=== PATIENT | male | born 1975 | race American Indian/Alaskan Native ===

== ENCOUNTER 2017-05-31 01:21 | Emergency (ER) | payer SELFPAY ==
[2017-05-31 01:28] VITALS: BMI 21.1
--- NOTE | 2017-05-31 03:11 | ED PDOC ---
Arrival/HPI - General Chief Complaint: Alcohol Ingestion Time Seen by Provider: 05/31/17 02:01 Historian: Patient, EMS EM Caveat: Intoxicated - History of Present Illness Narrative History of Present Illness (Text): 05/31/17 02:11 41 year old male presents to the emergency department by EMS for alcohol intoxication. Questionable fall and mildly unsteady on feet. Patient was uncooperative and shows no other signs of trauma. HPI and ROS limited due to patient's state of Alcohol intoxication. Past Medical History - Provider Review Nursing Documentation Reviewed: Yes - Cardiac Hx Cardiac Disorders: No - Pulmonary Hx Respiratory Disorders: Yes Hx Asthma: Yes - Neurological Hx Neurological Disorder: No - HEENT Hx HEENT Disorder: No - Renal Hx Renal Disorder: No - Endocrine/Metabolic Hx Endocrine Disorders: No - Hematological/Oncological Hx Blood Disorders: No - Integumentary Hx Dermatological Disorder: No - Musculoskeletal/Rheumatological Hx Musculoskeletal Disorders: No - Gastrointestinal Hx Gastrointestinal Disorders: No - Genitourinary/Gynecological Hx Genitourinary Disorders: No - Psychiatric Hx Psychophysiologic Disorder: No Hx Substance Use: No Family/Social History - Physician Review Nursing Documentation Reviewed: Yes Family/Social History: No Known Family HX Smoking Status: Heavy Smoker > 10 Cigarettes Daily Hx Alcohol Use: Yes Hx Substance Use: No Allergies/Home Meds Allergies/Adverse Reactions: Allergies No Known Allergies Allergy (Verified 05/31/17 01:36) Home Medications: Home Meds Medication Instructions Recorded Confirmed No Known Home Med 05/31/17 05/31/17 Review of Systems - Physician Review All systems were reviewed & negative as marked: Yes - Review of Systems Systems not reviewed;Unavailable: Intoxicated Physical Exam - Physical Exam Physical Exam Limitations: Intoxication Vital Signs Reviewed: Yes Vital Signs Temp Pulse Resp BP Pulse Ox 05/31/17 03:21 98.1 F 05/31/17 01:27 87 19 143/87 100 Temperature: Afebrile Blood Pressure: Normal Pulse: Regular Respiratory Rate: Normal Appearance: Positive for: Well-Appearing, Non-Toxic, Comfortable Pain Distress: None - Systems Exam Head: Present: Atraumatic, Normocephalic Pupils: Present: PERRL Extroacular Muscles: Present: EOMI Conjunctiva: Present: Normal Mouth: Present: Moist Mucous Membranes Neck: Present: Normal Range of Motion Respiratory/Chest: Present: Clear to Auscultation, Good Air Exchange. No: Respiratory Distress, Accessory Muscle Use Cardiovascular: Present: Regular Rate and Rhythm, Normal S1, S2. No: Murmurs Back: Present: Normal Inspection Upper Extremity: Present: Normal Inspection. No: Cyanosis, Edema Lower Extremity: Present: Normal Inspection. No: Edema Neurological: Present: GCS=15, Motor Func Grossly Intact Skin: Present: Warm, Dry, Normal Color. No: Rashes Psychiatric: Present: Alert, Normal Insight, Normal Concentration Medical Decision Making ED Course and Treatment: 05/31/17 02:11 Impression: 41 year old male presents for EtOH intoxication. Plan: -- CT Head W/O contrast -- Ativan -- Reassess and disposition Progress Notes: EXAM: CT Head Without Intravenous Contrast Dictated and Authenticated by: Laquita Benoit MD 05/31/2017 3:14 AM IMPRESSION: - No acute findings seen within the brain. - See above for remaining findings. - RAD Interpretation Radiology Orders: 05/31/17 02:25 HEAD W/O CONTRAST [CT] Stat - Medication Orders Current Medication Orders: Discontinued Medications Lorazepam (Ativan) 2 mg PO ONCE ONE PRN Reason: Protocol Stop: 05/31/17 02:58 Last Admin: 05/31/17 03:23 Dose: - Scribe Statement The provider has reviewed the documentation as recorded by the Artie Day Provider Scribe Attestation: All medical record entries made by the Scribe were at my direction and personally dictated by me. I have reviewed the chart and agree that the record accurately reflects my personal performance of the history, physical exam, medical decision making, and the department course for this patient. I have also personally directed, reviewed, and agree with the discharge instructions and disposition. Disposition/Present on Arrival - Present on Arrival Any Indicators Present on Arrival: No History of DVT/PE: No History of Uncontrolled Diabetes: No Urinary Catheter: No History of Decub. Ulcer: No History Surgical Site Infection Following: None - Disposition Have Diagnosis and Disposition been Completed?: Yes Diagnosis: Intoxication Disposition: HOME/ ROUTINE Disposition Time: 03:12 Patient Plan: Discharge Patient Problems: Current Active Problems Problem Status Onset Intoxication Acute Condition: IMPROVED Discharge Instructions (ExitCare): Abuse of Alcohol (ED) Forms: [employer] (Bur[place]ian)
--- NOTE | 2017-05-31 03:14 | CT ---
EXAM: CT Head Without Intravenous Contrast EXAM DATE/TIME: 05/31/2017 2:25 AM CLINICAL HISTORY: 41 years old, male; Signs and symptoms; Altered mental status/memory loss; Confusion or disorientation; Additional info: Fall TECHNIQUE: Axial computed tomography images of the head/brain without intravenous contrast. All CT scans at this facility use one or more dose reduction techniques, viz.: automated exposure control; ma/kV adjustment per patient size (including targeted exams where dose is matched to indication; i.e. head); or iterative reconstruction technique. COMPARISON: No relevant prior studies available. FINDINGS: BRAIN: No acute abnormality identified. No acute hemorrhage seen within the brain. No acute extra-axial fluid collections visualized. No evidence of significant mass effect within the brain.Normal boucher-white matter differentiation. VENTRICLES: No evidence of significant hydrocephalus. BONES/JOINTS: Left nasal bone fracture, which appears chronic. Recommend clinical correlation. No additional fractures seen. SOFT TISSUES: No acute abnormality of the visualized soft tissues is seen. SINUSES: Visualized paranasal sinuses appear clear. MASTOID AIR CELLS: Mastoid air cells appear clear. IMPRESSION: - No acute findings seen within the brain. - See above for remaining findings.
[2017-05-31 03:29] VITALS: TEMP 98.1
[2017-05-31 04:50] VITALS: BP 139/82; PULSE 79; RESP 18; O2SAT 96
== END 2017-05-31 03:30 | disposition home or self-care (01) ==
LOC: ED 01:21 → MERGE 01:21 → ED 03:30
DX: F10.129 Alcohol abuse with intoxication, unspecified (principal); Y90.9 Presence of alcohol in blood, level not specified

== ENCOUNTER 2017-06-27 21:54 | Emergency (ER) | payer SELFPAY ==
[2017-06-27 21:54] VITALS: BMI 21.1
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
[2017-06-28 05:10] VITALS: RESP 16; O2SAT 97
[2017-06-28 05:12] VITALS: BP 142/70; PULSE 78
== END 2017-06-28 06:36 | disposition home or self-care (01) ==
LOC: ED 21:54
DX: F10.129 Alcohol abuse with intoxication, unspecified (principal)

== ENCOUNTER 2017-11-18 22:08 | Inpatient (IN) | payer MEDICAID ==
[2017-11-18 23:00] VITALS: BMI 23.7
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
[2017-11-19 00:18] LABS: BASO # 0.08 K/mm3 (0.0-2.0); BASO % 0.8 % (0.0-3.0); EOS # 0.1 (0.0-0.7); EOS % 1.4 % (1.5-5.0); GRAN # 5.76 (1.4-6.5); GRAN % 57.8 % (50.0-68.0); HEMOGLOBIN 13.7 g/dL (14.0-18.0); LYMPH # 3.1 (1.2-3.4); LYMPH % 31.2 % (22.0-35.0); MEAN CELL VOLUME 91.8 fl (80.0-105.0); MEAN CORPUSCULAR HEMOGLOBIN 30.4 pg (25.0-35.0); MEAN CORPUSCULAR HGB CONC 33.2 g/dl (31.0-37.0); MEAN PLATELET VOLUME 9.9 fl (7.0-11.0); MONO # 0.9 (0.1-0.6); MONO % 8.8 % (1.0-6.0); RBC 4.5 10^6/uL (3.5-6.1); RED CELL DISTRIBUTION WIDTH 13.4 % (11.5-14.5)
[2017-11-19 00:18] LABS: URINE BILIRUBIN NEGATIVE (NEGATIVE); URINE BLOOD NEGATIVE (NEGATIVE); URINE GLUCOSE (UA) NEGATIVE (NEGATIVE); URINE LEUKOCYTE ESTERASE NEGATIVE Leu/uL (NEGATIVE); URINE PROTEIN TRACE mg/dL (<30 mg/dL)
[2017-11-19 00:19] LABS: URINE APPEARANCE CLEAR (CLEAR); URINE COLOR YELLOW (YELLOW)
[2017-11-19 00:29] LABS: URINE EPITHELIAL CELLS 0 - 2 /hpf (0-5); URINE RBC 0 - 2 /hpf (0-2); URINE WBC 0 - 2 /hpf (0-6)
[2017-11-19 00:30] LABS: ACETAMINOPHEN < 10.0 ug/ml (10.0-20.0); SALICYLATE < 1 mg/dL (2.0-20.0)
[2017-11-19 00:40] LABS: ALB/GLOB RATIO 1.4 (1.1-1.8); ALBUMIN 4.4 g/dL (3.0-4.8); ALT/SGPT 20 U/L (7-56); AST/SGOT 64 U/L (17-59); BLOOD UREA NITROGEN 16 mg/dL (7-21); CALCIUM 9.3 mg/dL (8.4-10.5); GFR AFRICAN-AMERICAN > 60; GFR NON-AFRICAN AMERICAN > 60
[2017-11-19 00:44] LABS: BARBITURATES, UR NEGATIVE (NEGATIVE); BENZODIAZEPINES, UR NEGATIVE (NEGATIVE); OPIATES, UR NEGATIVE (NEGATIVE); PHENCYCLIDINE, UR POSITIVE (NEGATIVE)
[2017-11-19 05:58] VITALS: O2SAT 100
[2017-11-19] MEDS ORDERED: Alum-Mag Hydrox-Simethicone Susp (30 mL) PO PRN (06:29)
[2017-11-19] MEDS ORDERED: Magnesium Hydroxide Susp 30 ml UD PO PRN (06:29)
[2017-11-19 08:07] LABS: GLUCOSE,FASTING 88 mg/dL (65-110); HDL CHOLESTEROL 76 mg/dL (29-60)
--- NOTE | 2017-11-19 08:17 | RAD ---
HISTORY: PES eval COMPARISON: No prior. FINDINGS: LUNGS: No active pulmonary disease. PLEURA: No significant pleural effusion identified, no pneumothorax apparent. CARDIOVASCULAR: Normal. OSSEOUS STRUCTURES: No significant abnormalities. VISUALIZED UPPER ABDOMEN: Normal. OTHER FINDINGS: None. IMPRESSION: No active disease.
[2017-11-19 08:18] LABS: LDL CHOLESTEROL 54 mg/dL (0-129)
--- NOTE | 2017-11-19 09:34 | PCM.BM ---
<Kaz Ardon - Last Filed: 11/19/17 09:30> Treatment Plan Problems - Problems identified on initial assessmt depressive symptoms Date Initiated: 11/19/17 Time Initiated: 09:31 Assessment reference: HP, NA Status: Active medication nonadherence Date Initiated: 11/19/17 Time Initiated: 09:32 Assessment reference: HP, NA Status: Active hoplessness/helplessness Date Initiated: 11/19/17 Time Initiated: 09:33 Assessment reference: HP, NA Status: Active Treatment assets and liabiliti Patient Assests: adapts well, cooperative, self-reliant, ADL independent, physically healthy, negotiates basic needs, cognitively intact Patient Liabilities: poor support system, relationship conflicts, substance abuse - Milieu Protocol Maintain good personal hygiene: daily Encourage regular showers, daily Remind patient to perform daily oral care, daily Assist patient to perform ADL's Maintain personal safety: daily Educate patient to report safety concerns to staff, daily Monitor environment for contraband/sharps Medication safety: Monitor for expected outcome, potential side effects: daily, Assess barriers to learning: daily, Assess readiness for medication education: daily Discharge/Continuing Care - Education Needs Education Needs: Patient Medication, Patient Diagnosis/Disease Process, Patient Coping Skills, Patient Anger Management skills, Patient Community resources, Patient Activities of Daily Living, Patient Health Practices/Safety, Patient Personal Hygiene/Grooming, Patient Aftercare Safety Plan - Discharge Discharge Criteria: Free of Suicidal thoughts, Free of Homicidal thoughts, Free of paranoid thoughts, Free of agitation, Normal sleep pattern, No longer exhibiting s/s of withdrawal Discharge to:: Home <Aminah Joseph - Last Filed: 11/19/17 13:48> - Diagnosis (1) Alcohol use disorder, severe, dependence Status: Acute Interventions: 11/19/17 13:48 Monitoring withdrawal symptoms Medical detoxification Pharmacotherapy for alcohol/benzos/opioid dependence Maintaining sobriety Relapse prevention Possible rehabilitation Motivational interviewing 12-step programs: AA meetings (2) PCP (phencyclidine) abuse Status: Acute Interventions: 11/19/17 13:48 Maintaining sobriety Relapse prevention Possible rehabilitation Motivational interviewing 12-step programs: AA meetings (3) Schizoaffective disorder Status: Acute Interventions: 11/19/17 13:49 Psychoeducation/psychotherapy Psychopharmacology/adjustment of medications as needed/ monitoring possible side effects Evaluate pt on daily basis Compliance with medications and follow up appointments Long acting medication if pt is noncompliant with pill form Suicide and homicide risk assessment and prevention, coping strategies, safety plan Relapse prevention Reduction of symptoms Improve functional status Possible assertive community treatment Cognitive behavioral therapy Family involvement Possible social skill training as outpatient <Savannah Meyer - Last Filed: 11/19/17 14:58> Family Contact Family involvement: Famliy/SO not involved
--- NOTE | 2017-11-19 13:47 | PCM.PSYCH ---
Initial Psychiatric Evaluation - Initial Psychiatric Evaluation Type of Admission: Voluntary Legal Status: Capacity (pt has capacity to sign consent for treatment) Chief Complaint (in patient's own words): "I just wanted the voices to stop..." Patient's Reaction to Hospitalization: pt was admitted for evaluation of possible suicidal ideation, command type hallucinations, which could be related to PCP he used History of Present Illness and Precipitating Events: shortly pt is a 41 y/o Male with reported history of bipolar disorder and psychosis vs schizoaffective disorder, alcohol use disorder and PCP use disorder, multiple psychiatric admissions, most recent was two days ago , pt was d/c AMA from , pt has at least 4suicidal attempts, most recent was about a week ago, pt tried to kill himself by banging his head against cabinet, pt also has h/o trying to hang self, slashed wrists, pt also has h/o incarceration for seven years because weapon possession. pt as admitted to the psychiatric inpatient unit for evaluation and stabilization of command type hallucinations, telling him to kill himself, worsening of depression, suicidal plan no intent, pt required further evaluation and stabilization and medication adjustment because pt was not able to contract for safety. pt was seen and examined at the treatment team meeting, presented with some psychomotor retardation, flat affect, concrete thought process, acceptable personal hygiene, good ADLs. pt said he wanted to be discharged from the because "I was feeling very depressed and I was hearing voices, but still they were giving me the same medications..." pt reported [facility] did not accept him (it was recommendation), pt reported not taking his medications and as a result pt relapsed on PCP "20$ worth daily". pt also reported that he was drinking alcohol "every other day", pt reported no other drug use, pt smokes about 4- 5cigarettes a day, counseling provided, nicotine patch offered, pt refused. pt said after he left the [facility] he was feeling more depressed and hopeless, pt reported for the past two days he was thinking either to overdose on drugs, or cut himself. pt said that he did not tried to kill himself. pt said that the last suicidal attempt was "seven days ago I banged my head against cabinet", pt has some scar on the forehead, does not look fresh. pt said he was diagnosed with bipolar disorder, pt reported h/o irritability, agitation, mind racing. pt presented to be disorganized and internally preoccupied. He reports auditory hallucinations telling him to kill himself. He also reports visual hallucinations, shadows, demons and devils. He also reports persecutory delusions that someone is following him. poor appetite and sleep. Past psychiatric h/o: patient has history of multiple inpatient psychiatric hospitalizations. He has been admitted at the [facility]. He was incarcerated when he tried to hang himself. He also slashed his wrist. He was incarcerated for 7 years because of a charge of weapons possession. PMH h/o fractured hand (because he punched a wall) Family hx unknown Meds from the previous admission: ARIPiprazole [Abilify] 10 mg PO DAILY #30 tab 09/28/17 buPROPion XL [Wellbutrin XL] 150 mg PO DAILY #30 t24 09/28/17 traZODone [Desyrel] 50 mg PO HS #30 tab 09/28/17 Benztropine [Cogentin] 1 mg PO BID #60 tab 10/25/17 Divalproex [Depakote DR] 500 mg PO HS #30 tcp 10/25/17 Haloperidol [Haldol] 5 mg PO BID #60 tab 10/25/17 traZODone [Desyrel] 50 mg PO HS PRN #30 tab 10/25/17 pt reported that he did not like abilify/depakote/haldol/trazodone pt said risperdal was helping him in the past and he requested to be on it. pt willing to try remeron for insomnia pt reports to live with the friend pt reports that he had some job and he is planning to go back 11/19/17 00:02 11/19/17 00:02 Lab Results 11/19/17 07:30: TSH 3rd Generation 2.78 11/19/17 07:30: Fasting Glucose 88, Triglycerides 48, Cholesterol 147, LDL Cholesterol Direct 54, HDL Cholesterol 76 H 11/19/17 00:02: Alcohol, Quantitative < 10 11/19/17 00:02: Salicylates < 1 L, Acetaminophen < 10.0 L 11/19/17 00:02: Sodium 144, Potassium 3.9, Chloride 104, Carbon Dioxide 28, Anion Gap 16, BUN 16, Creatinine 1.3, Est GFR ( Amer) > 60, Est GFR (Non- Af Amer) > 60, Random Glucose 85, Calcium 9.3, Magnesium 1.8, Total Bilirubin 0.2, AST 64 H, ALT 20, Alkaline Phosphatase 65, Total Protein 7.5, Albumin 4.4, Globulin 3.1, Albumin/Globulin Ratio 1.4 11/19/17 00:02: WBC 10.0, RBC 4.50, Hgb 13.7 L, Hct 41.3 L, MCV 91.8, MCH 30.4, MCHC 33.2, RDW 13.4, Plt Count 246, MPV 9.9, Gran % 57.8, Lymph % (Auto) 31.2, [place] % (Auto) 8.8 H, Eos % (Auto) 1.4 L, Baso % (Auto) 0.8, Gran # 5.76, Lymph # (Auto) 3.1, [place] # (Auto) 0.9 H, Eos # (Auto) 0.1, Baso # (Auto) 0.08 11/18/17 23:40: Urine Opiates Screen Negative, Urine Methadone Screen Negative, Ur Barbiturates Screen Negative, Ur Phencyclidine Scrn Positive H, Ur Amphetamines Screen Negative, U Benzodiazepines Scrn Negative, U Oth Cocaine Metabols Negative, U Cannabinoids Screen Negative 11/18/17 23:40: Urine Color Yellow, Urine Appearance Clear, Urine pH 7.0, Ur Specific [place] 1.015, Urine Protein Trace H, Urine Glucose (UA) Negative, Urine Ketones Negative, Urine Blood Negative, Urine Nitrate Negative, Urine Bilirubin Negative, Urine Urobilinogen 1.0 H, Ur Leukocyte Esterase Negative, Urine RBC 0 - 2, Urine WBC 0 - 2, Ur Epithelial Cells 0 - 2 Vital Signs Temp Pulse Resp BP Pulse Ox 11/19/17 09:45 97.7 F 63 16 109/59 L 11/19/17 05:59 97.6 F 60 16 105/66 100 11/19/17 05:58 97.6 F 60 16 105/66 100 11/19/17 05:07 61 16 105/53 L 98 11/19/17 03:46 65 18 104/36 L 98 11/19/17 02:13 80 16 109/60 98 11/18/17 22:59 98.5 F 72 19 129/74 99 pt denied being abuse Current Medications: Active Medications Generic Name Dose Route Start Last Admin Trade Name Freq PRN Reason Stop Dose Admin Acetaminophen 650 mg 11/19/17 06:29 Tylenol 325mg Tab PO Q4 PRN Pain, moderate (4-7) Al Hydrox/Mg Hydrox/Simethicone 30 ml 11/19/17 06:29 Maalox Plus 30 Ml PO DAILY PRN Upset Stomach Folic Acid 1 mg 11/20/17 08:00 Folic Acid PO DAILY IVETTE Magnesium Hydroxide 30 ml 11/19/17 06:29 Milk Of Magnesia PO DAILY PRN Constipation Mirtazapine 15 mg 11/19/17 22:00 Remeron PO HS [facility] Multivitamins/Minerals 1 tab 11/20/17 08:00 Therapeutic-M Tab PO 0800 IVETTE Risperidone 1 mg 11/19/17 07:00 11/19/17 10:29 Risperdal Tab PO 1 mg [facility] IVETTE Administration Protocol Thiamine HCl 100 mg 11/20/17 08:00 Vitamin B1 Tab PO DAILY IVETTE Ziprasidone 20 mg 11/19/17 12:54 Geodon Inj IM Q6H PRN agitation/psychosis Protocol Ziprasidone 20 mg 11/19/17 12:54 Geodon Cap PO Q6H PRN agitation/psychosis Protocol Zolpidem Tartrate 5 mg 11/19/17 12:57 Ambien PO HS PRN Insomnia Protocol Past Psychiatric History - Past Psychiatric History Previous Treatment History: Inpatient Prior Professional Help: see hPI Prior Psychiatric Treatment: see HPI At what hospital: see HPI Duration: see HPI Nature of Treatment: see HPI Explanation of prior treatment: see HPI History of Abuse: see HPI History of ETOH/Drug Use: see HPI History of Family Illness: see HPI Pertinent Medical Hx (Current Medical&Sleep Prob, Allergies): Allergies Allergy/AdvReac Type Severity Reaction Status Date / Time No Known Allergies Allergy Verified 11/18/17 23:03 buPROPion XL [Wellbutrin XL] 150 mg PO DAILY #30 t24 09/28/17 Benztropine [Cogentin] 1 mg PO BID #60 tab 10/25/17 Divalproex [Depakote DR] 500 mg PO HS #30 tcp 10/25/17 ARIPiprazole [Abilify] 15 mg PO QPM #30 tab 11/17/17 Sertraline [Zoloft] 100 mg PO DAILY #30 tab 11/17/17 traZODone [Desyrel] 100 mg PO HS #30 tab 11/17/17 Review of Systems - Review of Systems Systems not reviewed;Unavailable: Acuity of Condition - EENT Eyes: As Per HPI Ears: As Per HPI Nose/Mouth/Throat: As Per HPI - Cardiovascular Cardiovascular: As Per HPI - Respiratory Respiratory: As Per HPI - Gastrointestinal Gastrointestinal: As Per HPI - Genitourinary Genitourinary: As Per HPI - Reproductive: Male Reproductive:Male: As Per HPI - Musculoskeletal Musculoskeletal: As Par HPI - Integumentary Integumentary: As Per HPI - Neurological Neurological: As Per HPI - Psychiatric Psychiatric: As Per HPI - Endocrine Endocrine: As Per HPI - Hematologic/Lymphatic Hematologic: As Per HPI Mental Status Examination - Personal Presentation Personal Presentation: Looks stated age - Affect Affect: Flat - Motor Activity Motor Activity: Psychomotor Retardation - Reliability in Providing Information Reliability in Providing Information: Fair - Speech Speech: Organized, Other (poverty of speech) - Mood Mood: Depressed - Formal Thought Process Formal Thought Process: Hallucinations, Delusions, Paranoia, Loosening of associations, Circumstantial - Hallucinations/Delusions Hallucinations: Auditory Delusions: Persecution - Obsessions/Compulsions Obsessions: None Compulsions: None - Cognitive Functions Orientation: Person, Place, Situation Sensorium: Alert Attention/Concentration: Easily distracted Abstract Thinking: [place] Estimate of Intelligence: Below average Judgement: Intact, as evidence by: Insight regarding need for hospitalization - Risk Risk: Suicidal, Diminished functioning - Strength & Assets Inventory Strength & Assets Inventory: Cooperative (relatively good physical health) - Limitations Limitations: Other (substance abuse) DSM 5 DX - DSM 5 DSM 5 Diagnosis: as per h/o bipolar with psychosis vs schizoaffective bipolar type r/o substance induced psychosis PCP and alcohol use disorder - Recommended/Plan of Treatment Treatment Recommendations and Plan of Treatment: Milieu/structure/supportive therapy Medical consult will be considered SW consultation for discharge plan and social issues Med management pt reported that he did not like abilify/depakote/haldol/trazodone pt said risperdal was helping him in the past and he requested to be on it. 1mg po bid cogentin 0.5mg po bid for EPS pt willing to try remeron for insomnia 15mg po hs for depression and insomnia Family involvement Follow up on labs Will monitor closely Pt was educated about risk/benefits and alternatives of medications, coping strategies (safety plan, suicide prevention), relapse prevention, importance of follow up with psychiatrist and therapist, stay away from drugs/alcohol/smoking Projected ELOS: 7days Prognosis: fair Discharge Plan and Discharge Criteria: Pt will be not depressed or manic, will be more hopeful, will be not psychotic or anxious, will be not having thoughts of harming self or others, will be tolerating medications well, will not have major side effects, will be able to function, will not pose threat to self or others. - Smoking Cessation Smoking Cessation Initiated: No Reason for not providing: pt does not want to be on inicotine patch
--- NOTE | 2017-11-19 14:08 | CARD ---
APPROVED REPORT EKG Measurement Heart [id number] <Conclusion> Normal sinus rhythm Normal ECG
[2017-11-20] MEDS: Multivitamin With Minerals Tab PO SCH (09:32)
--- NOTE | 2017-11-20 12:45 | PCM.PYCHPN ---
Psychiatric Progress Note - Psychiatric Progress Note Patient seen today, length of contact: 30 minutes Patient Chief Complaint: "I feel little better" Problems Identified/Issues Discussed: Suicide/ homicide prevention, past psychiatric h/o, current psychiatric symptoms , medical problems, risk/benefits and alternatives of medications, medications compliance, coping strategies, substance abuse h/o, relapse prevention, importance of follow up with psychiatrist and therapist, discharge plan. Medical Problems: patient relatively healthy Diagnostic Results: 11/19/17 00:02 11/19/17 00:02 Lab Results 11/19/17 07:30: RPR Nonreactive 11/19/17 07:30: TSH 3rd Generation 2.78 11/19/17 07:30: Fasting Glucose 88, Triglycerides 48, Cholesterol 147, LDL Cholesterol Direct 54, HDL Cholesterol 76 H 11/19/17 00:02: Alcohol, Quantitative < 10 11/19/17 00:02: Salicylates < 1 L, Acetaminophen < 10.0 L 11/19/17 00:02: Sodium 144, Potassium 3.9, Chloride 104, Carbon Dioxide 28, Anion Gap 16, BUN 16, Creatinine 1.3, Est GFR ( Amer) > 60, Est GFR (Non- Af Amer) > 60, Random Glucose 85, Calcium 9.3, Magnesium 1.8, Total Bilirubin 0.2, AST 64 H, ALT 20, Alkaline Phosphatase 65, Total Protein 7.5, Albumin 4.4, Globulin 3.1, Albumin/Globulin Ratio 1.4 11/19/17 00:02: WBC 10.0, RBC 4.50, Hgb 13.7 L, Hct 41.3 L, MCV 91.8, MCH 30.4, MCHC 33.2, RDW 13.4, Plt Count 246, MPV 9.9, Gran % 57.8, Lymph % (Auto) 31.2, [place] % (Auto) 8.8 H, Eos % (Auto) 1.4 L, Baso % (Auto) 0.8, Gran # 5.76, Lymph # (Auto) 3.1, [place] # (Auto) 0.9 H, Eos # (Auto) 0.1, Baso # (Auto) 0.08 11/18/17 23:40: Urine Opiates Screen Negative, Urine Methadone Screen Negative, Ur Barbiturates Screen Negative, Ur Phencyclidine Scrn Positive H, Ur Amphetamines Screen Negative, U Benzodiazepines Scrn Negative, U Oth Cocaine Metabols Negative, U Cannabinoids Screen Negative 11/18/17 23:40: Urine Color Yellow, Urine Appearance Clear, Urine pH 7.0, Ur Specific [place] 1.015, Urine Protein Trace H, Urine Glucose (UA) Negative, Urine Ketones Negative, Urine Blood Negative, Urine Nitrate Negative, Urine Bilirubin Negative, Urine Urobilinogen 1.0 H, Ur Leukocyte Esterase Negative, Urine RBC 0 - 2, Urine WBC 0 - 2, Ur Epithelial Cells 0 - 2 Temp Pulse Resp BP Pulse Ox 97.7 F 55 L 18 87/47 L 100 11/20/17 07:34 11/20/17 07:34 11/20/17 07:34 11/20/17 07:34 11/19/17 05:59 DSM 5 Symptoms Update: shortly pt is a 41 y/o Male with reported history of bipolar disorder and psychosis vs schizoaffective disorder, alcohol use disorder and PCP use disorder, multiple psychiatric admissions, most recent was two days ago , pt was d/c AMA from [facility], pt has at least 4suicidal attempts, most recent was about a week ago, pt tried to kill himself by banging his head against cabinet, pt also has h/o trying to hang self, slashed wrists, pt also has h/o incarceration for seven years because weapon possession. pt as admitted to the psychiatric inpatient unit for evaluation and stabilization of command type hallucinations, telling him to kill himself, worsening of depression, suicidal plan no intent, pt required further evaluation and stabilization and medication adjustment because pt was not able to contract for safety. pt was seen and examined next to the nursing station, pt presented with some psychomotor retardation, flat affect, concrete thought process, acceptable personal hygiene, good ADLs. patient reported that he feels little bit better, reported that he still feels depressed and hopeless, reported voices are " little better", patient reported that he slept well, anxiety is "better controlled". As per nursing staff reported patient "be irritable, but no agitation, no aggression, at the same time patient preferred to be by himself, self isolating in his room. so far patient tolerates medications well, no side effects observed or reported , aims 0, no EPS. DSM 5 Diagnosis: as per h/o bipolar with psychosis vs schizoaffective bipolar type r/o substance induced psychosis PCP and alcohol use disorder Medication Change: Yes (risperdal was resumed, Remeron started) Medical Record Reviewed: Yes Consults ordered or reviewed: patient does not have any medical issues at present moment, we'll call medical team as needed. Mental Status Examination - Cognitive Function Orientation: Person, Place, Situation Memory: Impaired Attention: Poor Concentration: Poor Association: Loose Fund of Knowledge: Poor - Mood Mood: Depressed, Anxious - Affect Affect: Constricted, Flat - Formal Thought Process Formal Thought Process: Hallucinations, Delusions, Paranoia, Loosening of associations, Circumstantial - Suicidal Ideation Suicidal Ideation: No - Homicidal Ideation Homicidal Ideation: No Goal/Treatment Plan - Goal/Treatment Plan Need for Continued Stay: Remain at risks for inpatient hospitalization, Severe depression anxiety, Discharge may exacerbated symptoms, Failed transitioning, Severe functional impairment Progress Toward Problem(s) and Goals/Treatment Plan: Milieu/structure/supportive therapy Medical consult will be considered SW consultation for discharge plan and social issues Med management pt reported that he did not like abilify/depakote/haldol/trazodone pt said risperdal was helping him in the past and he requested to be on it. 1mg po bid cogentin 0.5mg po bid for EPS pt willing to try remeron for insomnia 15mg po hs for depression and insomnia Ambien as needed for insomnia Family involvement Follow up on labs Will monitor closely Pt was educated about risk/benefits and alternatives of medications, coping strategies (safety plan, suicide prevention), relapse prevention, importance of follow up with psychiatrist and therapist, stay away from drugs/alcohol/smoking Estimated Date of D/C: 11/26/17 (We'll monitor closely)
[2017-11-21 06:50] VITALS: RESP 20
[2017-11-21] MEDS: Multivitamin With Minerals Tab PO SCH (09:10)
--- NOTE | 2017-11-21 12:34 | PCM.PYCHPN ---
Psychiatric Progress Note - Psychiatric Progress Note Patient seen today, length of contact: 25 minutes Patient Chief Complaint: "irritable, I didn't sleep all night!" Problems Identified/Issues Discussed: Patient is a 41 y/o Male with reported history of bipolar disorder and psychosis vs schizoaffective disorder, alcohol use disorder and PCP use disorder, multiple psychiatric admissions, most recent was two days prior to this admission--pt was d/c AMA from [facility], at least 4 suicidal attempts--most recent was about a week ago, pt tried to kill himself by banging his head against cabinet (pt also has h/o trying to hang self, slashed wrists), +h/o incarceration for seven years because of weapon possession who was admitted to the psychiatric inpatient unit for evaluation and stabilization of command type hallucinations, telling him to kill himself as well as worsening of depression. I reviewed recent notes. Patient has been in fair control, he can be a little irritable but doesnt demonstrate any aggression or threatening behavior. He has attended group and socialized with certain peers though generally keeps to himself and stays in his room. Overnight patient was unhappy and irritable due to a new roommate talking to himself and pacing. Patient reports that his new roommate freaks me out and patient wasnt able to sleep last night. He denies thoughts to harm this roommate and commits to alerting staff members if roommate is disturbing him. Patient reported to Dr. Joseph yesterday that he still feels depressed and hopeless but has been getting better. Except for the issue with his roommate, patient reports the same general status to me today. He is feeling better and hallucinations are improving. He denies any SI. His thought process is coherent and affect is constricted and preoccupied. Patient doesn't appear to be responding to internal stimuli. He is more visible on the unit today thus far and has been in good control. Alerts staff members appropriately when there are issues and can communicate needs well. Insight, judgement and impulse control are improving. Diagnostic Results: as per h/o bipolar with psychosis vs schizoaffective bipolar type r/o substance induced psychosis PCP and alcohol use disorder Medication Change: Yes (risperdal was resumed, Remeron started) Medical Record Reviewed: Yes Mental Status Examination - Cognitive Function Orientation: Person, Place, Situation Memory: Impaired Attention: WNL Concentration: Poor Association: Loose Fund of Knowledge: Poor - Mood Mood: Depressed, Anxious - Affect Affect: Constricted, Flat, Other (mildly irritable regarding his roommate, he can be calmed down and reassured) - Formal Thought Process Formal Thought Process: Hallucinations (CAH are improving), Delusions, Paranoia , Loosening of associations, Circumstantial - Suicidal Ideation Suicidal Ideation: No - Homicidal Ideation Homicidal Ideation: No Goal/Treatment Plan - Goal/Treatment Plan Need for Continued Stay: Remain at risks for inpatient hospitalization, Severe depression anxiety, Discharge may exacerbated symptoms, Failed transitioning, Severe functional impairment Progress Toward Problem(s) and Goals/Treatment Plan: * c/w current tx and plan * No new labs today thus far * Vitals reviewed and noted below: Selected Entries 11/21/17 06:50 Temperature 98.0 F Pulse Rate 57 L Respiratory 20 Rate Blood Pressure 95/54 L Estimated Date of D/C: 11/26/17 (We'll monitor closely)
[2017-11-22] MEDS: Multivitamin With Minerals Tab PO SCH (08:20)
--- NOTE | 2017-11-22 10:11 | PCM.PYCHPN ---
Psychiatric Progress Note - Psychiatric Progress Note Patient seen today, length of contact: 25 minutes Patient Chief Complaint: "irritable, I didn't sleep all night!" Problems Identified/Issues Discussed: Patient is a 41 y/o Male with reported history of bipolar disorder and psychosis vs schizoaffective disorder, alcohol use disorder and PCP use disorder, multiple psychiatric admissions, most recent was two days prior to this admission--pt was d/c AMA from [facility], at least 4 suicidal attempts--most recent was about a week ago, pt tried to kill himself by banging his head against cabinet (pt also has h/o trying to hang self, slashed wrists), +h/o incarceration for seven years because of weapon possession who was admitted to the psychiatric inpatient unit for evaluation and stabilization of command type hallucinations, telling him to kill himself as well as worsening of depression. Patient is a 41 y/o Male with reported history of bipolar disorder and psychosis vs schizoaffective disorder, alcohol use disorder and PCP use disorder, multiple psychiatric admissions, most recent was two days prior to this admission--pt was d/c AMA from [facility], at least 4 suicidal attempts--most recent was about a week ago, pt tried to kill himself by banging his head against cabinet (pt also has h/o trying to hang self, slashed wrists), +h/o incarceration for seven years because of weapon possession who was admitted to the psychiatric inpatient unit for evaluation and stabilization of command type hallucinations, telling him to kill himself as well as worsening of depression. I reviewed recent notes. Patient has been in better emotional control, less labile and less irritable. He is more visible and seen socializing and smiling at times. He can tolerate group settings. Subjectively he reports that he is feeling better. Auditory hallucinations of "voices and chatter" persist but are much less pervasive than before. He can ignore them more readily. Denies CAH, denies SI or PI. He looks less guarded and less paranoid. Wasn't observed to be responding to internal stimuli. Continues to deny any new discomfort or pain. Insight, judgement and impulse control continue to improve. Diagnostic Results: as per h/o bipolar with psychosis vs schizoaffective bipolar type r/o substance induced psychosis PCP and alcohol use disorder Medication Change: Yes (risperdal was resumed, Remeron started) Medical Record Reviewed: Yes Mental Status Examination - Cognitive Function Orientation: Person, Place, Situation Memory: Impaired Attention: WNL Concentration: Poor Association: Loose Fund of Knowledge: Poor - Mood Mood: Depressed, Anxious - Affect Affect: Constricted, Flat, Other (mildly irritable regarding his roommate, he can be calmed down and reassured) - Formal Thought Process Formal Thought Process: Hallucinations (CAH are improving), Delusions, Paranoia , Loosening of associations, Circumstantial - Suicidal Ideation Suicidal Ideation: No - Homicidal Ideation Homicidal Ideation: No Goal/Treatment Plan - Goal/Treatment Plan Need for Continued Stay: Remain at risks for inpatient hospitalization, Severe depression anxiety, Discharge may exacerbated symptoms, Failed transitioning, Severe functional impairment Progress Toward Problem(s) and Goals/Treatment Plan: * c/w current tx and plan * No new labs today thus far * Vitals reviewed and noted below: Selected Entries 11/22/17 07:22 Temperature 97.5 F L Pulse Rate 57 L Respiratory 20 Rate Blood Pressure 94/49 L Estimated Date of D/C: 11/26/17 (We'll monitor closely)
[2017-11-23] MEDS: Multivitamin With Minerals Tab PO SCH (08:26)
--- NOTE | 2017-11-23 10:11 | PCM.PYCHPN ---
Psychiatric Progress Note - Psychiatric Progress Note Patient seen today, length of contact: 25 minutes Patient Chief Complaint: "irritable, I didn't sleep all night!" Problems Identified/Issues Discussed: Patient is a 41 y/o Male with reported history of bipolar disorder and psychosis vs schizoaffective disorder, alcohol use disorder and PCP use disorder, multiple psychiatric admissions, most recent was two days prior to this admission--pt was d/c AMA from [facility], at least 4 suicidal attempts--most recent was about a week ago, pt tried to kill himself by banging his head against cabinet (pt also has h/o trying to hang self, slashed wrists), +h/o incarceration for seven years because of weapon possession who was admitted to the psychiatric inpatient unit for evaluation and stabilization of command type hallucinations, telling him to kill himself as well as worsening of depression. I reviewed recent notes. Patient is oriented x3 and improving on the unit. He has been in better emotional control, less labile and less irritable over the weekend. He is more visible and seen socializing, even smiling at times. He can tolerate group settings and appears better related than at admission. Subjectively patient reports that he is feeling better. Auditory hallucinations "voices and chatter" persist but are much less pervasive than before. He can ignore them more readily and they aren't distressful. Denies CAH, denies SI or PI. He also appears less guarded and less paranoid. Patient has not been observed to be responding to internal stimuli. Insight, judgement and impulse control continue to improve. Diagnostic Results: as per h/o bipolar with psychosis vs schizoaffective bipolar type r/o substance induced psychosis PCP and alcohol use disorder Medication Change: Yes (risperdal was resumed, Remeron started) Medical Record Reviewed: Yes Mental Status Examination - Cognitive Function Orientation: Person, Place, Situation Memory: Impaired Attention: WNL Concentration: Poor Association: Loose Fund of Knowledge: Poor - Mood Mood: Depressed, Anxious - Affect Affect: Constricted, Flat, Other (mildly irritable regarding his roommate, he can be calmed down and reassured) - Formal Thought Process Formal Thought Process: Hallucinations ( Auditory hallucinations "voices and chatter" persist but are much less pervasive than before. He can ignore them more readily and they aren't distressful. Denies CAH), Delusions, Paranoia, Loosening of associations (improving focus and clarity of thought), Circumstantial - Suicidal Ideation Suicidal Ideation: No - Homicidal Ideation Homicidal Ideation: No Goal/Treatment Plan - Goal/Treatment Plan Need for Continued Stay: Remain at risks for inpatient hospitalization, Severe depression anxiety, Discharge may exacerbated symptoms, Failed transitioning, Severe functional impairment Progress Toward Problem(s) and Goals/Treatment Plan: * c/w current tx and plan * No new labs this weekend * Vitals reviewed and noted below: 11/23/17 06:55 Temperature 97.9 F Pulse Rate 57 L Respiratory 20 Rate Blood Pressure 99/52 L Estimated Date of D/C: 11/26/17 (We'll monitor closely)
[2017-11-24] MEDS: Multivitamin With Minerals Tab PO SCH (08:59)
--- NOTE | 2017-11-24 15:47 | PCM.PYCHPN ---
Psychiatric Progress Note - Psychiatric Progress Note Patient seen today, length of contact: 25 minutes Patient Chief Complaint: "I feel little better, but increase my risperdal" Problems Identified/Issues Discussed: Suicide/ homicide prevention, past psychiatric h/o, current psychiatric symptoms , medical problems, risk/benefits and alternatives of medications, medications compliance, coping strategies, substance abuse h/o, relapse prevention, importance of follow up with psychiatrist and therapist, discharge plan. Medical Problems: patient relatively healthy Diagnostic Results: 11/19/17 00:02 11/19/17 00:02 Lab Results 11/19/17 07:30: RPR Nonreactive 11/19/17 07:30: TSH 3rd Generation 2.78 11/19/17 07:30: Fasting Glucose 88, Triglycerides 48, Cholesterol 147, LDL Cholesterol Direct 54, HDL Cholesterol 76 H 11/19/17 00:02: Alcohol, Quantitative < 10 11/19/17 00:02: Salicylates < 1 L, Acetaminophen < 10.0 L 11/19/17 00:02: Sodium 144, Potassium 3.9, Chloride 104, Carbon Dioxide 28, Anion Gap 16, BUN 16, Creatinine 1.3, Est GFR ( Amer) > 60, Est GFR (Non- Af Amer) > 60, Random Glucose 85, Calcium 9.3, Magnesium 1.8, Total Bilirubin 0.2, AST 64 H, ALT 20, Alkaline Phosphatase 65, Total Protein 7.5, Albumin 4.4, Globulin 3.1, Albumin/Globulin Ratio 1.4 11/19/17 00:02: WBC 10.0, RBC 4.50, Hgb 13.7 L, Hct 41.3 L, MCV 91.8, MCH 30.4, MCHC 33.2, RDW 13.4, Plt Count 246, MPV 9.9, Gran % 57.8, Lymph % (Auto) 31.2, [place] % (Auto) 8.8 H, Eos % (Auto) 1.4 L, Baso % (Auto) 0.8, Gran # 5.76, Lymph # (Auto) 3.1, [place] # (Auto) 0.9 H, Eos # (Auto) 0.1, Baso # (Auto) 0.08 11/18/17 23:40: Urine Opiates Screen Negative, Urine Methadone Screen Negative, Ur Barbiturates Screen Negative, Ur Phencyclidine Scrn Positive H, Ur Amphetamines Screen Negative, U Benzodiazepines Scrn Negative, U Oth Cocaine Metabols Negative, U Cannabinoids Screen Negative 11/18/17 23:40: Urine Color Yellow, Urine Appearance Clear, Urine pH 7.0, Ur Specific [place] 1.015, Urine Protein Trace H, Urine Glucose (UA) Negative, Urine Ketones Negative, Urine Blood Negative, Urine Nitrate Negative, Urine Bilirubin Negative, Urine Urobilinogen 1.0 H, Ur Leukocyte Esterase Negative, Urine RBC 0 - 2, Urine WBC 0 - 2, Ur Epithelial Cells 0 - 2 Temp Pulse Resp BP Pulse Ox 97.7 F 55 L 18 87/47 L 100 11/20/17 07:34 11/20/17 07:34 11/20/17 07:34 11/20/17 07:34 11/19/17 05:59 DSM 5 Symptoms Update: shortly pt is a 41 y/o Male with reported history of bipolar disorder and psychosis vs schizoaffective disorder, alcohol use disorder and PCP use disorder, multiple psychiatric admissions, most recent was two days ago , pt was d/c AMA from [facility], pt has at least 4suicidal attempts, most recent was about a week ago, pt tried to kill himself by banging his head against cabinet, pt also has h/o trying to hang self, slashed wrists, pt also has h/o incarceration for seven years because weapon possession. pt as admitted to the psychiatric inpatient unit for evaluation and stabilization of command type hallucinations, telling him to kill himself, worsening of depression, suicidal plan no intent, pt required further evaluation and stabilization and medication adjustment because pt was not able to contract for safety. pt was seen and examined at the tx team meeting room, pt presented with some psychomotor retardation, flat affect, concrete thought process, acceptable personal hygiene, good ADLs. patient reported that he feels little bit better, reported that he still feels depressed and at times hears voices, asked risperdal to be increased, pt also appears to be depressed, pt said he wants remeron to be incereased as well. As per nursing staff reported patient "could be irrtable", but no agitation, no aggression, at the same time patient preferred to be by himself, self isolating in his room. so far patient tolerates medications well, no side effects observed or reported , aims 0, no EPS. DSM 5 Diagnosis: as per h/o bipolar with psychosis vs schizoaffective bipolar type r/o substance induced psychosis PCP and alcohol use disorder Medication Change: Yes (risperdal, cogentin, remeron increased) Medical Record Reviewed: Yes Mental Status Examination - Cognitive Function Orientation: Person, Place, Situation Memory: Impaired Attention: WNL Concentration: Poor (some improvements) Association: Loose (some improvement) Fund of Knowledge: Poor - Mood Mood: Depressed ("I am not that depressed, I am feeling little better"), Anxious - Affect Affect: Constricted, Flat, Other (mildly irritable regarding his roommate, he can be calmed down and reassured) - Formal Thought Process Formal Thought Process: Hallucinations ( Auditory hallucinations "voices and chatter" persist but are much less pervasive than before. He can ignore them more readily and they aren't distressful. Denies CAH), Delusions, Paranoia, Loosening of associations (improving focus and clarity of thought), Circumstantial - Suicidal Ideation Suicidal Ideation: No - Homicidal Ideation Homicidal Ideation: No Goal/Treatment Plan - Goal/Treatment Plan Need for Continued Stay: Remain at risks for inpatient hospitalization, Severe depression anxiety, Discharge may exacerbated symptoms, Failed transitioning, Severe functional impairment Progress Toward Problem(s) and Goals/Treatment Plan: Milieu/structure/supportive therapy Medical consult will be considered SW consultation for discharge plan and social issues Med management pt reported that he did not like abilify/depakote/haldol/trazodone risperdal 2mg po bid for psychosis and mood stabilization cogentin 1mg po bid for EPS pt willing to increase remeron for insomnia 30mg po hs for depression and insomnia Ambien as needed for insomnia Family involvement Follow up on labs Will monitor closely Pt was educated about risk/benefits and alternatives of medications, coping strategies (safety plan, suicide prevention), relapse prevention, importance of follow up with psychiatrist and therapist, stay away from drugs/alcohol/smoking pt wants to be discharged tomorrow Estimated Date of D/C: 11/26/17 (We'll monitor closely)
[2017-11-25 07:34] VITALS: BP 80/49; PULSE 53; TEMP 98
[2017-11-25] MEDS: Multivitamin With Minerals Tab PO SCH (09:07)
--- NOTE | 2017-11-25 14:29 | PCM.PYCHDC ---
Mental Status Examination - Mental Status Examination Orientation: Person, Place, Situation, Time Memory: Intact Mood: Neutral Affect: Constricted (but reactive, mood congruent) Speech: Appropriate Attention: Poor (but with improvement) Concentration: WNL Language: Word Retrieval Association: WNL Fund of Knowledge: WNL Formal Thought Process: Paranoia (mild, improved) Description of patient's judgement and insight: Pt has improved insight into mental and medical illness, pt was compliant with medications and unit rules and regulations, pt was going to groups, was calm, cooperative, socially appropriate, no behavioral incidents, no agitation, no aggression. Psychotic Thoughts and Behaviors: Pt denied v/a/t hallucinations, denied paranoid ideations, pt does not appear to be psychotic, and thought process is goal directed. Suicidal Ideation: No Current Homicidal Ideation?: No Plan: pt adamantly denied thoughts of harming self or others denied intent or plan. Discharge Summary - Discharge Note Reason for Hospitalization: pt was admitted for evaluation of possible suicidal ideation, command type hallucinations, which could be related to PCP he used Psychiatric History (includes Medical, Family, Personal Hx): see HPI Laboratory Data: 11/19/17 00:02 11/19/17 00:02 Lab Results 11/19/17 07:30: RPR Nonreactive 11/19/17 07:30: TSH 3rd Generation 2.78 11/19/17 07:30: Fasting Glucose 88, Triglycerides 48, Cholesterol 147, LDL Cholesterol Direct 54, HDL Cholesterol 76 H 11/19/17 00:02: Alcohol, Quantitative < 10 11/19/17 00:02: Salicylates < 1 L, Acetaminophen < 10.0 L 11/19/17 00:02: Sodium 144, Potassium 3.9, Chloride 104, Carbon Dioxide 28, Anion Gap 16, BUN 16, Creatinine 1.3, Est GFR ( Amer) > 60, Est GFR (Non- Af Amer) > 60, Random Glucose 85, Calcium 9.3, Magnesium 1.8, Total Bilirubin 0.2, AST 64 H, ALT 20, Alkaline Phosphatase 65, Total Protein 7.5, Albumin 4.4, Globulin 3.1, Albumin/Globulin Ratio 1.4 11/19/17 00:02: WBC 10.0, RBC 4.50, Hgb 13.7 L, Hct 41.3 L, MCV 91.8, MCH 30.4, MCHC 33.2, RDW 13.4, Plt Count 246, MPV 9.9, Gran % 57.8, Lymph % (Auto) 31.2, [place] % (Auto) 8.8 H, Eos % (Auto) 1.4 L, Baso % (Auto) 0.8, Gran # 5.76, Lymph # (Auto) 3.1, [place] # (Auto) 0.9 H, Eos # (Auto) 0.1, Baso # (Auto) 0.08 11/18/17 23:40: Urine Opiates Screen Negative, Urine Methadone Screen Negative, Ur Barbiturates Screen Negative, Ur Phencyclidine Scrn Positive H, Ur Amphetamines Screen Negative, U Benzodiazepines Scrn Negative, U Oth Cocaine Metabols Negative, U Cannabinoids Screen Negative 11/18/17 23:40: Urine Color Yellow, Urine Appearance Clear, Urine pH 7.0, Ur Specific [place] 1.015, Urine Protein Trace H, Urine Glucose (UA) Negative, Urine Ketones Negative, Urine Blood Negative, Urine Nitrate Negative, Urine Bilirubin Negative, Urine Urobilinogen 1.0 H, Ur Leukocyte Esterase Negative, Urine RBC 0 - 2, Urine WBC 0 - 2, Ur Epithelial Cells 0 - 2 Vital Signs Temp Pulse Resp BP Pulse Ox 11/25/17 07:33 98.0 F 53 L 20 80/49 L 11/24/17 07:00 97.6 F 60 20 96/56 L 11/23/17 16:00 59 L 98/52 L 11/23/17 06:55 97.9 F 57 L 20 99/52 L 11/22/17 16:00 72 109/53 L 11/22/17 07:22 97.5 F L 57 L 20 94/49 L 11/21/17 16:02 82 112/79 11/21/17 06:50 98.0 F 57 L 20 95/54 L 11/20/17 16:00 67 106/55 L 11/20/17 07:34 97.7 F 55 L 18 87/47 L 11/19/17 16:00 50 L 107/57 L 11/19/17 09:45 97.7 F 63 16 109/59 L 11/19/17 05:59 97.6 F 60 16 105/66 100 11/19/17 05:58 97.6 F 60 16 105/66 100 11/19/17 05:07 61 16 105/53 L 98 11/19/17 03:46 65 18 104/36 L 98 11/19/17 02:13 80 16 109/60 98 11/18/17 22:59 98.5 F 72 19 129/74 99 Consultations:: List each consultation separately and include: 1. Reason for request. 2. Findings. 3. Follow-up Consultations: patient does not have any medical issues at present moment, we'll call medical team as needed. Summary of Hospital Course include:: 1. Description of specific treatment plan utilized for patients during their course of treatmen. 2. Summarize the time- course for resolution of acute symptoms and/or regressed behaviors. 3. Describe issues identified and worked on during hospitalization. 4. Describe medication utilized. 5. Describe medical problems identified and treated. 6. Reassessment of suicide risk Summary of Hospital Course: shortly pt is a 41 y/o Male with reported history of bipolar disorder and psychosis vs schizoaffective disorder, alcohol use disorder and PCP use disorder, multiple psychiatric admissions, most recent was two days ago , pt was d/c AMA from [facility], pt has at least 4suicidal attempts, most recent was about a week ago, pt tried to kill himself by banging his head against cabinet, pt also has h/o trying to hang self, slashed wrists, pt also has h/o incarceration for seven years because weapon possession. pt as admitted to the psychiatric inpatient unit for evaluation and stabilization of command type hallucinations, telling him to kill himself, worsening of depression, suicidal plan no intent, pt required further evaluation and stabilization and medication adjustment because pt was not able to contract for safety. initially pt was seen and examined at the treatment team meeting, presented with some psychomotor retardation, flat affect, concrete thought process, acceptable personal hygiene, good ADLs. pt said he wanted to be discharged from the [facility] because "I was feeling very depressed and I was hearing voices, but still they were giving me the same medications..." pt reported [facility] did not accept him (it was recommendation), pt reported not taking his medications and as a result pt relapsed on PCP "20$ worth daily". pt also reported that he was drinking alcohol "every other day", pt reported no other drug use, pt smokes about 4-5cigarettes a day, counseling provided, nicotine patch offered, pt refused. pt said after he left the [facility] he was feeling more depressed and hopeless, pt reported for the past two days he was thinking either to overdose on drugs, or cut himself. pt said that he did not tried to kill himself. pt said that the last suicidal attempt was "seven days ago I banged my head against cabinet", pt has some scar on the forehead, does not look fresh. pt said he was diagnosed with bipolar disorder, pt reported h/o irritability, agitation, mind racing. pt presented to be disorganized and internally preoccupied. He reports auditory hallucinations telling him to kill himself. He also reports visual hallucinations, shadows, demons and devils. He also reports persecutory delusions that someone is following him. poor appetite and sleep. Past psychiatric h/o: patient has history of multiple inpatient psychiatric hospitalizations. He has been admitted at the [facility]. He was incarcerated when he tried to hang himself. He also slashed his wrist. He was incarcerated for 7 years because of a charge of weapons possession. PMH h/o fractured hand (because he punched a wall) Family hx unknown Meds from the previous admission: ARIPiprazole [Abilify] 10 mg PO DAILY #30 tab 09/28/17 buPROPion XL [Wellbutrin XL] 150 mg PO DAILY #30 t24 09/28/17 traZODone [Desyrel] 50 mg PO HS #30 tab 09/28/17 Benztropine [Cogentin] 1 mg PO BID #60 tab 10/25/17 Divalproex [Depakote DR] 500 mg PO HS #30 tcp 10/25/17 Haloperidol [Haldol] 5 mg PO BID #60 tab 10/25/17 traZODone [Desyrel] 50 mg PO HS PRN #30 tab 10/25/17 pt reported that he did not like abilify/depakote/haldol/trazodone pt said risperdal was helping him in the past and he requested to be on it. pt willing to try remeron for insomnia pt reports to live with the friend pt reports that he had some job and he is planning to go back 11/19/17 00:02 11/19/17 00:02 Lab Results 11/19/17 07:30: TSH 3rd Generation 2.78 11/19/17 07:30: Fasting Glucose 88, Triglycerides 48, Cholesterol 147, LDL Cholesterol Direct 54, HDL Cholesterol 76 H 11/19/17 00:02: Alcohol, Quantitative < 10 11/19/17 00:02: Salicylates < 1 L, Acetaminophen < 10.0 L 11/19/17 00:02: Sodium 144, Potassium 3.9, Chloride 104, Carbon Dioxide 28, Anion Gap 16, BUN 16, Creatinine 1.3, Est GFR ( Amer) > 60, Est GFR (Non- Af Amer) > 60, Random Glucose 85, Calcium 9.3, Magnesium 1.8, Total Bilirubin 0.2, AST 64 H, ALT 20, Alkaline Phosphatase 65, Total Protein 7.5, Albumin 4.4, Globulin 3.1, Albumin/Globulin Ratio 1.4 11/19/17 00:02: WBC 10.0, RBC 4.50, Hgb 13.7 L, Hct 41.3 L, MCV 91.8, MCH 30.4, MCHC 33.2, RDW 13.4, Plt Count 246, MPV 9.9, Gran % 57.8, Lymph % (Auto) 31.2, [place] % (Auto) 8.8 H, Eos % (Auto) 1.4 L, Baso % (Auto) 0.8, Gran # 5.76, Lymph # (Auto) 3.1, [place] # (Auto) 0.9 H, Eos # (Auto) 0.1, Baso # (Auto) 0.08 11/18/17 23:40: Urine Opiates Screen Negative, Urine Methadone Screen Negative, Ur Barbiturates Screen Negative, Ur Phencyclidine Scrn Positive H, Ur Amphetamines Screen Negative, U Benzodiazepines Scrn Negative, U Oth Cocaine Metabols Negative, U Cannabinoids Screen Negative 11/18/17 23:40: Urine Color Yellow, Urine Appearance Clear, Urine pH 7.0, Ur Specific [place] 1.015, Urine Protein Trace H, Urine Glucose (UA) Negative, Urine Ketones Negative, Urine Blood Negative, Urine Nitrate Negative, Urine Bilirubin Negative, Urine Urobilinogen 1.0 H, Ur Leukocyte Esterase Negative, Urine RBC 0 - 2, Urine WBC 0 - 2, Ur Epithelial Cells 0 - 2 Vital Signs Temp Pulse Resp BP Pulse Ox 11/19/17 09:45 97.7 F 63 16 109/59 L 11/19/17 05:59 97.6 F 60 16 105/66 100 11/19/17 05:58 97.6 F 60 16 105/66 100 11/19/17 05:07 61 16 105/53 L 98 11/19/17 03:46 65 18 104/36 L 98 11/19/17 02:13 80 16 109/60 98 11/18/17 22:59 98.5 F 72 19 129/74 99 pt denied being abuse pt reported that he did not like abilify/depakote/haldol/trazodone pt was stabilized on the following medications, which were titrated up slowly: risperdal 2mg po bid for psychosis and mood stabilization cogentin 1mg po bid for EPS remeron for insomnia 30mg po hs for depression and insomnia Ambien as needed for insomnia, but pt did not need it for the past two days pt tolerated meds well, no side effects observed or reported, AIMS 0, no EPS. Over the course of this hospitalization pt was attending groups, pt also had medication management, had therapeutic milieu. Overall pt improved significantly, pt's affect became brighter, pt was less depressed, has realistic future oriented plans, pt also does not appear to be psychotic, or anxious, pt was socially appropriate, no behavioral issues, pts insight improved as well and soon pt deemed to be ready for discharge. when pt was asked what did he learned from this hospitalization pt said "I learned not use PCP, take my medications, and take care of myself". At the time of the discharge pt denied been depressed, denied thoughts of harming self or others, denied psychotic symptoms, and pt does not appeared to be psychotic, denied been anxious, pt is not in imminent danger to self or others, will be following up at [facility], information about follow up appointment, time and address provided to the pt, it is patient responsibility to follow up with outpatient clinic, PMD as well as specialists ( see SW note for more detailed information). In case pt will need to obtain results of studies pending at discharge pt was provided with contact information of Psychiatric Inpatient unit [phone] as well as Medical Record Department [phone]. pt does not want to be on nicotine patch AA meetings as well as smoking cessation treatment program information was provided by the pt does not want naltrexone tx for alcohol pt was provided with prescriptions for all of medications (please see medication reconciliation form) Pt was educated about safety plan in case of worsening of symptoms or in case of suicidal or homicidal ideation call 911 or go to the nearest ER, also was educated to take meds as prescribed and stay away from drugs, pt verbalized understanding. - Diagnosis (1) Alcohol use disorder, severe, dependence Status: Chronic Priority: Medium (2) PCP (phencyclidine) abuse Status: Chronic Priority: Medium (3) Schizoaffective disorder Status: Chronic Priority: Medium - Final Diagnosis (DSM 5) Condition upon Discharge: GOOD Disposition: HOME/ ROUTINE Follow-up Treatment Plan: At the time of the discharge pt denied been depressed, denied thoughts of harming self or others, denied psychotic symptoms, and pt does not appeared to be psychotic, denied been anxious, pt is not in imminent danger to self or others, will be following up at [facility], information about follow up appointment, time and address provided to the pt, it is patient responsibility to follow up with outpatient clinic, PMD as well as specialists ( see note for more detailed information). In case pt will need to obtain results of studies pending at discharge pt was provided with contact information of Psychiatric Inpatient unit [phone] as well as Medical Record Department [phone]. pt does not want to be on nicotine patch AA meetings as well as smoking cessation treatment program information was provided by the pt does not meet a criteria for naltrexone tx pt was provided with prescriptions for all of medications (please see medication reconciliation form) Pt was educated about safety plan in case of worsening of symptoms or in case of suicidal or homicidal ideation call 911 or go to the nearest ER, also was educated to take meds as prescribed and stay away from drugs, pt verbalized understanding. Prescriptions/Medication Reconciliation: Benztropine [Benztropine Mesylate] 1 mg PO AMHS #30 tab Folic Acid 1 mg PO DAILY #14 tab Mirtazapine [Remeron] 30 mg PO HS #14 tab Multimineral/Multivitamin [Therapeutic-M Tab] 1 tab PO 0800 #14 tab risperiDONE [RisperDAL] 2 mg PO AMHS #30 tab Thiamine [Vitamin B1 Tab] 100 mg PO DAILY #14 tab - Smoking Cessation Smoking Cessation Medication prescribed: No Reason for not providing: pt does not want it. - Antipsychotic Medications Pt discharged on 2 or more routine antipsychotic medications: No
== END 2017-11-25 12:29 | disposition home or self-care (01) | DRG 430 ==
LOC: ED 22:08 → ERH 11-19 04:43 → PSYC 11-19 06:16
PROVIDERS: ADMIT Psychiatry & Neurology Psychiatry; ATTEND Psychiatry & Neurology Psychiatry
DX: F25.9 Schizoaffective disorder, unspecified (principal); F16.10 Hallucinogen abuse, uncomplicated; F10.20 Alcohol dependence, uncomplicated

== ENCOUNTER 2017-12-04 01:37 | Inpatient (IN) | payer MEDICAID ==
[2017-12-04 01:38] VITALS: BMI 23.7
--- NOTE | 2017-12-04 02:16 | ED PDOC ---
Arrival/HPI - General Chief Complaint: Psychiatric Evaluation Time Seen by Provider: 12/04/17 01:41 - History of Present Illness Narrative History of Present Illness (Text): 12/04/17 02:10 Past Medical History - Infectious Disease Hx of Infectious Diseases: None - Cardiac Hx Hypertension: No - Pulmonary Hx Asthma: Yes - Neurological Hx Seizures: No - HEENT Hx HEENT Disorder: No - Renal Hx Renal Disorder: No - Endocrine/Metabolic Hx Endocrine Disorders: No - Hematological/Oncological Hx Blood Disorders: No - Integumentary Hx Dermatological Disorder: No - Musculoskeletal/Rheumatological Hx Musculoskeletal Disorders: No - Gastrointestinal Hx Gastrointestinal Disorders: No - Genitourinary/Gynecological Hx Sexually Transmitted Diseases: No - Psychiatric Hx Depression: Yes Hx Schizophrenia: Yes Hx Substance Use: No - Anesthesia Hx Anesthesia: No Hx Anesthesia Reactions: No Hx Malignant Hyperthermia: No - Suicidal Assessment Feels Threatened In Home Enviroment: No Family/Social History Smoking Status: Heavy Smoker > 10 Cigarettes Daily Hx Alcohol Use: Yes Hx Substance Use: No Substance used: PCP Allergies/Home Meds Allergies/Adverse Reactions: Allergies No Known Allergies Allergy (Verified 12/02/17 05:39) Physical Exam Vital Signs Temp Pulse Resp BP Pulse Ox 12/04/17 02:05 98.2 F 78 18 118/64 99 Medical Decision Making ED Course and Treatment: 12/04/17 02:10 - Scribe Statement The provider has reviewed the documentation as recorded by the Scribe Ruba Fair All medical record entries made by the Scribe were at my direction and personally dictated by me. I have reviewed the chart and agree that the record accurately reflects my personal performance of the history, physical exam, medical decision making, and the department course for this patient. I have also personally directed, reviewed, and agree with the discharge instructions and disposition. Disposition/Present on Arrival - Present on Arrival History of DVT/PE: No History of Uncontrolled Diabetes: No Urinary Catheter: No History of Decub. Ulcer: No History Surgical Site Infection Following: None - Disposition
--- NOTE | 2017-12-04 02:31 | EDPD ---
Arrival/HPI - General Chief Complaint: Psychiatric Evaluation Time Seen by Provider: 12/04/17 01:41 Historian: Patient - History of Present Illness Narrative History of Present Illness (Text): 12/04/17 02:10 James Morales is a 41 year old male, whose past medical history includes bipolar disorder, substance abuse, and depression, who presents to the Emergency department requesting psychiatric evaluation. Patient states he "isn' t thinking straight." Patient denies any fever, chills, chest pain, shortness of breath, nausea, vomiting, diarrhea, urinary symptoms, back pain, neck pain, headache, dizziness, trauma/injury, suicidal/homicidal ideation or any other complaints. Patient was seen at [facility] 2 days prior and cleared for discharge. Symptom Onset: Gradual Symptom Course: Unchanged Activities at Onset: Light Context: Street Past Medical History - Travel History Have you traveled outside of the [place] within the last 3 mons?: No - Infectious Disease Hx of Infectious Diseases: None - Psychiatric History Hx Depression: Yes - Suicidal Assessment Feels Threatened at Home: No Family/Social History Smoking Status: Heavy Smoker > 10 Cigarettes Daily Hx Alcohol Use: Yes Hx Substance Use: No Substance used: PCP Allergies/Home Meds Allergies/Adverse Reactions: Allergies No Known Allergies Allergy (Verified 12/02/17 05:39) Pediatric Physical Exam Vital Signs Reviewed: Yes Vital Signs Temp Pulse Resp BP Pulse Ox 12/04/17 02:05 98.2 F 78 18 118/64 99 Temperature: Afebrile Blood Pressure: Normal Pulse: Regular Respiratory Rate: Normal Appearance: Positive for: Well-Appearing, Non-Toxic, Comfortable, Happy, Playful Pain Distress: None Mental Status: Positive for: Alert and Oriented X 3 - Systems Exam Head: Present: Normal [place] Medical Decision Making ED Course and Treatment: 12/04/17 02:10 Impression: 41 year old male presents for psychiatric evaluation. Plan: -- Reassess and disposition Progress Notes: Disposition/Present on Arrival - Present on Arrival History of DVT/PE: No History of Uncontrolled Diabetes: No Urinary Catheter: No History of Decub. Ulcer: No History Surgical Site Infection Following: None - Disposition Forms: [employer] (Lao)
--- NOTE | 2017-12-04 02:36 | ED PDOC ---
Arrival/HPI - General Chief Complaint: Psychiatric Evaluation Time Seen by Provider: 12/04/17 01:41 Historian: Patient - History of Present Illness Narrative History of Present Illness (Text): 12/04/17 02:10 James Morales is a 41 year old male, whose past medical history includes bipolar disorder, substance abuse, and depression, who presents to the Emergency department requesting psychiatric evaluation. Patient states he "isn' t thinking straight." Patient denies any fever, chills, chest pain, shortness of breath, nausea, vomiting, diarrhea, urinary symptoms, back pain, neck pain, headache, dizziness, trauma/injury, suicidal/homicidal ideation or any other complaints. Patient was seen at [facility] 2 days prior and cleared for discharge. Symptom Onset: Gradual Symptom Course: Other Activities at Onset: Light Context: Home Past Medical History - Provider Review Nursing Documentation Reviewed: Yes - Infectious Disease Hx of Infectious Diseases: None - Cardiac Hx Hypertension: No - Pulmonary Hx Asthma: Yes - Neurological Hx Seizures: No - HEENT Hx HEENT Disorder: No - Renal Hx Renal Disorder: No - Endocrine/Metabolic Hx Endocrine Disorders: No - Hematological/Oncological Hx Blood Disorders: No - Integumentary Hx Dermatological Disorder: No - Musculoskeletal/Rheumatological Hx Musculoskeletal Disorders: No - Gastrointestinal Hx Gastrointestinal Disorders: No - Genitourinary/Gynecological Hx Sexually Transmitted Diseases: No - Psychiatric Hx Depression: Yes Hx Schizophrenia: Yes Hx Substance Use: No - Anesthesia Hx Anesthesia: No Hx Anesthesia Reactions: No Hx Malignant Hyperthermia: No - Suicidal Assessment Feels Threatened In Home Enviroment: No Family/Social History - Physician Review Nursing Documentation Reviewed: Yes Family/Social History: Unknown Family HX Smoking Status: Heavy Smoker > 10 Cigarettes Daily Hx Alcohol Use: Yes Hx Substance Use: No Substance used: PCP Allergies/Home Meds Allergies/Adverse Reactions: Allergies No Known Allergies Allergy (Verified 12/04/17 18:52) Review of Systems - Physician Review All systems were reviewed & negative as marked: Yes - Review of Systems Constitutional: Normal. absent: Fevers Eyes: Normal ENT: Normal Respiratory: Normal. absent: SOB, Cough Cardiovascular: Normal. absent: Chest Pain Gastrointestinal: Normal. absent: Abdominal Pain, Diarrhea, Nausea, Vomiting Genitourinary Male: Normal. absent: Frequency, Hematuria, Urinary Output Changes Musculoskeletal: Normal. absent: Back Pain, Neck Pain Skin: Normal. absent: Rash Neurological: Normal. absent: Headache, Dizziness Endocrine: Normal Hemo/Lymphatic: Normal Psychiatric: Depression Physical Exam Vital Signs Reviewed: Yes Vital Signs Temp Pulse Resp BP Pulse Ox 12/04/17 09:53 98.4 F 82 20 118/65 99 12/04/17 09:08 70 18 123/70 100 12/04/17 08:00 98.2 F 80 18 119/76 99 12/04/17 05:54 66 18 116/60 99 12/04/17 02:05 98.2 F 78 18 118/64 99 Temperature: Afebrile Blood Pressure: Normal Pulse: Regular Respiratory Rate: Normal Appearance: Positive for: Well-Appearing, Non-Toxic, Comfortable Pain Distress: None Mental Status: Positive for: Alert and Oriented X 3 - Systems Exam Head: Present: Atraumatic, Normocephalic Pupils: Present: PERRL Extroacular Muscles: Present: EOMI Conjunctiva: Present: Normal Mouth: Present: Moist Mucous Membranes Neck: Present: Normal Range of Motion Respiratory/Chest: Present: Clear to Auscultation, Good Air Exchange. No: Respiratory Distress, Accessory Muscle Use Cardiovascular: Present: Regular Rate and Rhythm, Normal S1, S2. No: Murmurs Abdomen: No: Tenderness, Distention, Peritoneal Signs Back: Present: Normal Inspection Upper Extremity: Present: Normal Inspection. No: Cyanosis, Edema Lower Extremity: Present: Normal Inspection. No: Edema Neurological: Present: GCS=15, CN II-XII Intact, Speech Normal Skin: Present: Warm, Dry, Normal Color. No: Rashes Psychiatric: Present: Alert, Oriented x 3, Normal Insight, Normal Concentration Medical Decision Making ED Course and Treatment: 12/04/17 02:10 Impression: 41 year old male requesting psychiatric evaluation tonight Plan: -- Reassess and disposition Prior Visits: Notes and results from previous visits were reviewed. Progress Notes: - Lab Interpretations Lab Results: 12/04/17 04:10 12/04/17 04:10 Lab Results 12/04/17 04:20: Urine Opiates Screen Negative, Urine Methadone Screen Negative, Ur Barbiturates Screen Negative, Ur Phencyclidine Scrn Positive H, Ur Amphetamines Screen Negative, U Benzodiazepines Scrn Negative, U Oth Cocaine Metabols Negative, U Cannabinoids Screen Positive H 12/04/17 04:10: Alcohol, Quantitative < 10 12/04/17 04:10: Salicylates < 1 L, Acetaminophen < 10.0 L 12/04/17 04:10: Sodium 145, Potassium 3.7, Chloride 105, Carbon Dioxide 26, Anion Gap 17, BUN 12, Creatinine 1.4, Est GFR ( Amer) > 60, Est GFR (Non- Af Amer) 56, Random Glucose 83, Calcium 9.5, Magnesium 1.9, Total Bilirubin 0.5 , AST 56, ALT 29, Alkaline Phosphatase 66, Total Protein 7.7, Albumin 4.3, Globulin 3.4, Albumin/Globulin Ratio 1.3 12/04/17 04:10: Urine Color Yellow, Urine Appearance Sl cloudy, Urine pH 6.0, Ur Specific [place] >= 1.030, Urine Protein 30 H, Urine Glucose (UA) Negative, Urine Ketones Trace H, Urine Blood Negative, Urine Nitrate Negative, Urine Bilirubin Small H, Urine Urobilinogen 1.0 H, Ur Leukocyte Esterase Negative, Urine RBC 0 - 2, Urine WBC 0 - 2, Ur Epithelial Cells 0 - 2 12/04/17 04:10: WBC 9.2, RBC 4.50, Hgb 14.0, Hct 40.9 L, MCV 90.9, MCH 31.1, MCHC 34.2, RDW 13.1, Plt Count 313, MPV 9.9, Gran % 63.2, Lymph % (Auto) 27.7, [place] % (Auto) 7.1 H, Eos % (Auto) 1.5, Baso % (Auto) 0.5, Gran # 5.79, Lymph # ( Auto) 2.5, [place] # (Auto) 0.7 H, Eos # (Auto) 0.1, Baso # (Auto) 0.05 - RAD Interpretation Radiology Orders: 12/04/17 04:21 CHEST PORTABLE [RAD] Stat - Medication Orders Current Medication Orders: Acetaminophen (Tylenol 325mg Tab) 650 mg PO Q6H PRN PRN Reason: Pain, moderate (4-7) Last Admin: 12/04/17 13:06 Dose: 650 mg MAR Pain/Vitals Document 12/04/17 13:06 ABO (Rec: 12/04/17 13:06 [id number] Pain Reassessment Is This A Pain ReAssessment? No Sleep Is patient sleeping during reassessment? No Presence of Pain Presence of Pain Yes Pain Scale Used Pain Scale Used Numeric Re-Assess: MAR Pain/Vitals Document 12/04/17 14:06 ABO (Rec: 12/04/17 15:46 ABO [id number]) Pain Reassessment Is This A Pain ReAssessment? Yes Sleep Is patient sleeping during reassessment? No Presence of Pain Presence of Pain Yes Al Hydrox/Mg Hydrox/Simethicone (Maalox Plus 30 Ml) 30 ml PO DAILY PRN PRN Reason: Indigestion / Heartburn Benztropine Mesylate (Cogentin) 0.5 mg PO BID FOR[facility]LY [facility], 1928[facility]1983 Last Admin: 12/04/17 17:32 Dose: 0.5 mg Folic Acid (Folic Acid) 1 mg PO DAILY [facility], 1928[facility]1983 Last Admin: 12/04/17 17:32 Dose: 1 mg Lorazepam (Ativan) 1 mg PO TID PRN; Protocol PRN Reason: Anxiety Lorazepam (Ativan) 2 mg IM Q6H PRN; Protocol PRN Reason: agitaiton Magnesium Hydroxide (Milk Of Magnesia) 30 ml PO DAILY PRN PRN Reason: Constipation Mirtazapine (Remeron) 15 mg PO HS [facility], [facility]1983 Last Admin: 12/04/17 21:29 Dose: 15 mg Risperidone (Risperdal Tab) 1 mg PO TID [facility], [facility]1983 PRN Reason: Protocol Last Admin: 12/04/17 17:32 Dose: 1 mg Behavioural Document 12/04/17 17:32 ABO (Rec: 12/04/17 17:32 [id number] Maintenance Maintenance Dose Yes Re-Assess: Reassess Psych Meds Document 12/04/17 18:32 ABO (Rec: 12/04/17 18:51 [id number] Reassess Psych Med Effective Thiamine HCl (Vitamin B1 Tab) 100 mg PO DAILY [facility], [facility]1983 Last Admin: 12/04/17 17:32 Dose: 100 mg Ziprasidone (Geodon Inj) 20 mg IM Q6H PRN; Protocol PRN Reason: severe agitaiton/psychosis Ziprasidone (Geodon Cap) 20 mg PO Q6H PRN; Protocol PRN Reason: Agitation Zolpidem Tartrate (Ambien) 5 mg PO HS PRN; Protocol PRN Reason: Insomnia - Transfer of Care Patient signed out to Dr:: rabines pes eval - Scribe Statement The provider has reviewed the documentation as recorded by the Scribe Ruba Fair All medical record entries made by the Scribe were at my direction and personally dictated by me. I have reviewed the chart and agree that the record accurately reflects my personal performance of the history, physical exam, medical decision making, and the department course for this patient. I have also personally directed, reviewed, and agree with the discharge instructions and disposition. Disposition/Present on Arrival - Present on Arrival Any Indicators Present on Arrival: No History of DVT/PE: No History of Uncontrolled Diabetes: No Urinary Catheter: No History of Decub. Ulcer: No History Surgical Site Infection Following: None - Disposition Have Diagnosis and Disposition been Completed?: Yes Diagnosis: Major depression Disposition: HOSPITALIZED Disposition Time: 07:00 Patient Problems: Current Active Problems Problem Status Onset Major depression Acute Condition: GUARDED
[2017-12-04 04:52] LABS: BASO # 0.05 K/mm3 (0.0-2.0); BASO % 0.5 % (0.0-3.0); EOS # 0.1 (0.0-0.7); EOS % 1.5 % (1.5-5.0); GRAN # 5.79 (1.4-6.5); GRAN % 63.2 % (50.0-68.0); LYMPH # 2.5 (1.2-3.4); LYMPH % 27.7 % (22.0-35.0); MEAN CELL VOLUME 90.9 fl (80.0-105.0); MEAN CORPUSCULAR HEMOGLOBIN 31.1 pg (25.0-35.0); MEAN CORPUSCULAR HGB CONC 34.2 g/dl (31.0-37.0); MEAN PLATELET VOLUME 9.9 fl (7.0-11.0); MONO # 0.7 (0.1-0.6); MONO % 7.1 % (1.0-6.0); RBC 4.5 10^6/uL (3.5-6.1); RED CELL DISTRIBUTION WIDTH 13.1 % (11.5-14.5); WHITE BLOOD COUNT 9.2 10^3/ul (4.5-11.0)
[2017-12-04 05:03] LABS: ACETAMINOPHEN < 10.0 ug/ml (10.0-20.0); SALICYLATE < 1 mg/dL (2.0-20.0); URINE BILIRUBIN SMALL (NEGATIVE); URINE BLOOD NEGATIVE (NEGATIVE); URINE GLUCOSE (UA) NEGATIVE (NEGATIVE); URINE LEUKOCYTE ESTERASE NEGATIVE Leu/uL (NEGATIVE); URINE PROTEIN 30 mg/dL (<30 mg/dL)
[2017-12-04 05:09] LABS: URINE APPEARANCE SL CLOUDY (CLEAR); URINE COLOR YELLOW (YELLOW)
[2017-12-04 05:22] LABS: URINE EPITHELIAL CELLS 0 - 2 /hpf (0-5); URINE RBC 0 - 2 /hpf (0-2); URINE WBC 0 - 2 /hpf (0-6)
[2017-12-04 05:42] LABS: ALB/GLOB RATIO 1.3 (1.1-1.8); ALBUMIN 4.3 g/dL (3.0-4.8); ALT/SGPT 29 U/L (7-56); AST/SGOT 56 U/L (17-59); BLOOD UREA NITROGEN 12 mg/dL (7-21); CALCIUM 9.5 mg/dL (8.4-10.5); GFR AFRICAN-AMERICAN > 60; GFR NON-AFRICAN AMERICAN 56
[2017-12-04 05:42] LABS: BARBITURATES, UR NEGATIVE (NEGATIVE); BENZODIAZEPINES, UR NEGATIVE (NEGATIVE); OPIATES, UR NEGATIVE (NEGATIVE); PHENCYCLIDINE, UR POSITIVE (NEGATIVE)
--- NOTE | 2017-12-04 07:12 | ED PDOC ---
Physical Exam Vital Signs Temp Pulse Resp BP Pulse Ox 12/04/17 09:08 70 18 123/70 100 12/04/17 08:00 98.2 F 80 18 119/76 99 12/04/17 05:54 66 18 116/60 99 12/04/17 02:05 98.2 F 78 18 118/64 99 Medical Decision Making ED Course and Treatment: 12/04/17 07:11 Patient endorsed to me by . Pending PES. 12/04/17 09:20 Case discussed with JULIETH Mi, who evaluated the patient again and consulted wit Dr. Aminah Joseph. Patient was admitted to Psych for r/o Major depressive disorder with psychotic features. - Lab Interpretations Lab Results: 12/04/17 04:10 12/04/17 04:10 Lab Results 12/04/17 04:20: Urine Opiates Screen Negative, Urine Methadone Screen Negative, Ur Barbiturates Screen Negative, Ur Phencyclidine Scrn Positive H, Ur Amphetamines Screen Negative, U Benzodiazepines Scrn Negative, U Oth Cocaine Metabols Negative, U Cannabinoids Screen Positive H 12/04/17 04:10: Alcohol, Quantitative < 10 12/04/17 04:10: Salicylates < 1 L, Acetaminophen < 10.0 L 12/04/17 04:10: Sodium 145, Potassium 3.7, Chloride 105, Carbon Dioxide 26, Anion Gap 17, BUN 12, Creatinine 1.4, Est GFR ( Amer) > 60, Est GFR (Non- Af Amer) 56, Random Glucose 83, Calcium 9.5, Magnesium 1.9, Total Bilirubin 0.5 , AST 56, ALT 29, Alkaline Phosphatase 66, Total Protein 7.7, Albumin 4.3, Globulin 3.4, Albumin/Globulin Ratio 1.3 12/04/17 04:10: Urine Color Yellow, Urine Appearance Sl cloudy, Urine pH 6.0, Ur Specific [place] >= 1.030, Urine Protein 30 H, Urine Glucose (UA) Negative, Urine Ketones Trace H, Urine Blood Negative, Urine Nitrate Negative, Urine Bilirubin Small H, Urine Urobilinogen 1.0 H, Ur Leukocyte Esterase Negative, Urine RBC 0 - 2, Urine WBC 0 - 2, Ur Epithelial Cells 0 - 2 12/04/17 04:10: WBC 9.2, RBC 4.50, Hgb 14.0, Hct 40.9 L, MCV 90.9, MCH 31.1, MCHC 34.2, RDW 13.1, Plt Count 313, MPV 9.9, Gran % 63.2, Lymph % (Auto) 27.7, [place] % (Auto) 7.1 H, Eos % (Auto) 1.5, Baso % (Auto) 0.5, Gran # 5.79, Lymph # ( Auto) 2.5, [place] # (Auto) 0.7 H, Eos # (Auto) 0.1, Baso # (Auto) 0.05 - RAD Interpretation Radiology Orders: 12/04/17 04:21 CHEST PORTABLE [RAD] Stat - Scribe Statement The provider has reviewed the documentation as recorded by the Scribe Devin Patel Provider Scribe Attestation: All medical record entries made by the Scribe were at my direction and personally dictated by me. I have reviewed the chart and agree that the record accurately reflects my personal performance of the history, physical exam, medical decision making, and the department course for this patient. I have also personally directed, reviewed, and agree with the discharge instructions and disposition. Disposition/Present on Arrival - Present on Arrival Any Indicators Present on Arrival: No History of DVT/PE: No History of Uncontrolled Diabetes: No Urinary Catheter: No History of Decub. Ulcer: No History Surgical Site Infection Following: None - Disposition Have Diagnosis and Disposition been Completed?: Yes Diagnosis: Major depression Disposition: HOSPITALIZED Disposition Time: 09:21 Patient Plan: Admission Condition: GUARDED Referrals: PCP,NO [Primary Care Provider] - Follow up with primary Forms: [employer] ([employer])
--- NOTE | 2017-12-04 08:13 | RAD ---
HISTORY: pes COMPARISON: 11/19/2017 FINDINGS: LUNGS: No active pulmonary disease. PLEURA: No significant pleural effusion identified, no pneumothorax apparent. CARDIOVASCULAR: Normal. OSSEOUS STRUCTURES: No significant abnormalities. VISUALIZED UPPER ABDOMEN: Normal. OTHER FINDINGS: None. IMPRESSION: No active disease.
--- NOTE | 2017-12-04 08:50 | CARD ---
APPROVED REPORT EKG Measurement Heart [id number] <Conclusion> Sinus bradycardia Possible Left atrial enlargement High Voltage.
[2017-12-04 09:56] VITALS: O2SAT 99
[2017-12-04] MEDS ORDERED: Magnesium Hydroxide Susp 30 ml UD PO PRN (12:38)
[2017-12-04] MEDS ORDERED: Alum-Mag Hydrox-Simethicone Susp (30 mL) PO PRN (12:39)
--- NOTE | 2017-12-04 15:06 | PCM.PSYCH ---
Initial Psychiatric Evaluation - Initial Psychiatric Evaluation Type of Admission: Voluntary Legal Status: Capacity (patient has capacity to sign consent for treatment) Chief Complaint (in patient's own words): "I got to know that my daughter is , she already 6months, she was hiding it, everybody was hiding it, I was feeling very sad, I didn't know what I was doing, I did not even use drugs..." (but UDS was positive for PCP and marijuana) Patient's Reaction to Hospitalization: patient was admitted to the psychiatric inpatient unit for evaluation and stabilization of disorganized, depressed symptoms, possible suicidal ideation, patient was not compliant with the medications for unknown reasons, patient did not follow up with outpatient provider, patient requires higher level of care, observation, meds resumption. History of Present Illness and Precipitating Events: shortly pt is a 41 y/o Male with reported history of bipolar disorder and psychosis vs schizoaffective disorder, alcohol use disorder and PCP use disorder, multiple psychiatric admissions, most recent was about a week ago from [facility] and before that about 10 days pt was d/c AMA from [facility], pt has at least 4suicidal attempts, most recent was at the beginning of this month, pt tried to kill himself by banging his head against cabinet, pt also has h/o trying to hang self, slashed wrists, pt also has h/o incarceration for seven years because weapon possession. pt was admitted to the psychiatric inpatient unit for evaluation and stabilization of depressive symptoms, command type hallucinations, telling him to kill himself, worsening of depression, suicidal plan no intent, pt required further evaluation and stabilization and medication adjustment because pt was not able to contract for safety in ED. pt was seen and examined in ED and in psych inpatient unit later on. presented with some psychomotor retardation, flat affect, concrete thought process, acceptable personal hygiene, good ADLs. patient has disorganized thought process , patient reported that he did not know what he was doing, patient reported that he got to know that he is 20 year old daughter is 6 months , patient reported "everybody was hiding that information from me", patient reported that he went to his ex- house and confronted her and had argument with her, patient also reported that he spoke to his daughter confronted her as well. Patient reported that while ago he posted on the Facebook that he has no family anymore, and pt's daughter was feeling offended and that is why she was hiding her from him. Patient reported that he was feeling depressed, was not able to function, was wandering on the streets, patient reported that he did try to go back to work but was not able to perform, patient reported that he was not using any drugs but urine drug screen was positive for PCP as well as marijuana, patient reported that he was not smoking but it is questionable because patient has history of smoking. patient also reported that he was noncompliant with the medications for unknown reasons. pt said he was diagnosed with bipolar disorder, pt reported h/o irritability, agitation, mind racing. pt presented to be disorganized and internally preoccupied. He reports auditory hallucinations telling him to kill himself. He also reports visual hallucinations, shadows, demons and devils. He also reports persecutory delusions that someone is following him. poor appetite and sleep. Past psychiatric h/o: patient has history of multiple inpatient psychiatric hospitalizations, most recent less than a week ago to this hospital. [facility] He was incarcerated when he tried to hang himself. He also slashed his wrist. He was incarcerated for 7 years because of a charge of weapons possession. PMH h/o fractured hand (because he punched a wall) Family hx unknown Meds from the previous admission: benztropine 1 mg twice a day Folic acid 1 mg daily Remeron 30 mg at the nighttime Multivitamins by mouth daily Risperdal 2 mg twice a day Thiamine 100 mg by mouth daily pt reported that he did not like abilify/depakote/haldol/trazodone pt said risperdal was helping him in the past and he requested to be on it. pt willing to resume remeron for insomnia pt reports to live with the friend pt reports that he had some job and he is planning to go back 12/04/17 04:10 12/04/17 04:10 Lab Results 12/04/17 04:20: Urine Opiates Screen Negative, Urine Methadone Screen Negative, Ur Barbiturates Screen Negative, Ur Phencyclidine Scrn Positive H, Ur Amphetamines Screen Negative, U Benzodiazepines Scrn Negative, U Oth Cocaine Metabols Negative, U Cannabinoids Screen Positive H 12/04/17 04:10: Alcohol, Quantitative < 10 12/04/17 04:10: Salicylates < 1 L, Acetaminophen < 10.0 L 12/04/17 04:10: Sodium 145, Potassium 3.7, Chloride 105, Carbon Dioxide 26, Anion Gap 17, BUN 12, Creatinine 1.4, Est GFR ( Amer) > 60, Est GFR (Non- Af Amer) 56, Random Glucose 83, Calcium 9.5, Magnesium 1.9, Total Bilirubin 0.5 , AST 56, ALT 29, Alkaline Phosphatase 66, Total Protein 7.7, Albumin 4.3, Globulin 3.4, Albumin/Globulin Ratio 1.3 12/04/17 04:10: Urine Color Yellow, Urine Appearance Sl cloudy, Urine pH 6.0, Ur Specific [place] >= 1.030, Urine Protein 30 H, Urine Glucose (UA) Negative, Urine Ketones Trace H, Urine Blood Negative, Urine Nitrate Negative, Urine Bilirubin Small H, Urine Urobilinogen 1.0 H, Ur Leukocyte Esterase Negative, Urine RBC 0 - 2, Urine WBC 0 - 2, Ur Epithelial Cells 0 - 2 12/04/17 04:10: WBC 9.2, RBC 4.50, Hgb 14.0, Hct 40.9 L, MCV 90.9, MCH 31.1, MCHC 34.2, RDW 13.1, Plt Count 313, MPV 9.9, Gran % 63.2, Lymph % (Auto) 27.7, [place] % (Auto) 7.1 H, Eos % (Auto) 1.5, Baso % (Auto) 0.5, Gran # 5.79, Lymph # ( Auto) 2.5, [place] # (Auto) 0.7 H, Eos # (Auto) 0.1, Baso # (Auto) 0.05 Vital Signs Temp Pulse Resp BP Pulse Ox 12/04/17 11:02 20 12/04/17 09:53 98.4 F 82 20 118/65 99 12/04/17 09:08 70 18 123/70 100 12/04/17 08:00 98.2 F 80 18 119/76 99 12/04/17 05:54 66 18 116/60 99 12/04/17 02:05 98.2 F 78 18 118/64 99 patient denied being abused Current Medications: Active Medications Generic Name Dose Route Start Last Admin Trade Name Freq PRN Reason Stop Dose Admin Acetaminophen 650 mg 12/04/17 12:37 12/04/17 13:06 Tylenol 325mg Tab PO 650 mg Q6H PRN Administration Pain, moderate (4-7) Al Hydrox/Mg Hydrox/Simethicone 30 ml 12/04/17 12:39 Maalox Plus 30 Ml PO DAILY PRN Indigestion / Heartburn Magnesium Hydroxide 30 ml 12/04/17 12:38 Milk Of Magnesia PO DAILY PRN Constipation Past Psychiatric History - Past Psychiatric History Previous Treatment History: Inpatient Prior Professional Help: see HPI Prior Psychiatric Treatment: see HPI At what hospital: see HPI Duration: see HPI Nature of Treatment: see HPI Explanation of prior treatment: see HPI History of Abuse: see HPI History of ETOH/Drug Use: see HPI History of Family Illness: see HPI Pertinent Medical Hx (Current Medical&Sleep Prob, Allergies): Allergies Allergy/AdvReac Type Severity Reaction Status Date / Time No Known Allergies Allergy Verified 12/02/17 05:39 Benztropine [Benztropine Mesylate] 1 mg PO AMHS #30 tab 11/25/17 Folic Acid 1 mg PO DAILY #14 tab 11/25/17 Mirtazapine [Remeron] 30 mg PO HS #14 tab 11/25/17 Multimineral/Multivitamin [Therapeutic-M Tab] 1 tab PO 0800 #14 tab 11/25/17 Thiamine [Vitamin B1 Tab] 100 mg PO DAILY #14 tab 11/25/17 risperiDONE [RisperDAL] 2 mg PO AMHS #30 tab 11/25/17 Review of Systems - Review of Systems Systems not reviewed;Unavailable: Acuity of Condition - EENT Eyes: As Per HPI Ears: As Per HPI Nose/Mouth/Throat: As Per HPI - Cardiovascular Cardiovascular: As Per HPI - Respiratory Respiratory: As Per HPI - Gastrointestinal Gastrointestinal: As Per HPI - Genitourinary Genitourinary: As Per HPI - Reproductive: Male Reproductive:Male: As Per HPI - Musculoskeletal Musculoskeletal: As Par HPI - Integumentary Integumentary: As Per HPI - Neurological Neurological: As Per HPI - Psychiatric Psychiatric: As Per HPI - Endocrine Endocrine: As Per HPI - Hematologic/Lymphatic Hematologic: As Per HPI Mental Status Examination - Personal Presentation Personal Presentation: Looks stated age - Affect Affect: Flat - Motor Activity Motor Activity: Psychomotor Retardation - Reliability in Providing Information Reliability in Providing Information: Poor, due to alteration in thoughts, Poor , due to altered mood, Poor, due to cognitve impairment - Speech Speech: Disorganized - Mood Mood: Depressed - Formal Thought Process Formal Thought Process: Hallucinations, Delusions, Paranoia, Loosening of associations, Circumstantial - Hallucinations/Delusions Delusions: Persecution - Obsessions/Compulsions Obsessions: None Compulsions: None - Cognitive Functions Orientation: Person, Place Attention/Concentration: Easily distracted Abstract Thinking: [place] Estimate of Intelligence: Below average Judgement: Intact, as evidence by: Insight regarding need for hospitalization - Risk Risk: Self-mutilation, Diminished functioning - Strength & Assets Inventory Strength & Assets Inventory: Cooperative - Limitations Limitations: Other (drug abuse and noncompliance with medications) DSM 5 DX - DSM 5 DSM 5 Diagnosis: rule out substance-induced psychosis Rule out schizoaffective Stimulant use disorder Cannabis abuse - Recommended/Plan of Treatment Treatment Recommendations and Plan of Treatment: milieu, structure, supportive therapy Benztropine 0.5 mg twice a day for EPS Folic Acid 1 mg PO DAILYwill be resumed Mirtazapine [Remeron] 50 mg at the nighttime for depression and insomnia Multimineral/Multivitamin [Therapeutic-M Tab] by mouth daily will be resumed Thiamine [Vitamin B1 Tab] 100 mg PO DAILY by mouth daily will be resumed risperiDONE [RisperDAL] mg 3 times a day for psychosis As needed medications SW consultation for discharge plan and social issues Family involvement Follow up on labs Will monitor closely Pt was educated about risk/benefits and alternatives of medications, coping strategies (safety plan, suicide prevention), relapse prevention, importance of follow up with psychiatrist and therapist, stay away from drugs/alcohol/smoking Projected ELOS: 7 days Prognosis: guarded Discharge Plan and Discharge Criteria: Pt will be not depressed or manic, will be more hopeful, will be not psychotic or anxious, will be not having thoughts of harming self or others, will be tolerating medications well, will not have major side effects, will be able to function, will not pose threat to self or others. - Smoking Cessation Smoking Cessation Initiated: No Reason for not providing: patient denied smoking
--- NOTE | 2017-12-04 15:36 | PCM.BM ---
Treatment Plan Problems - Problems identified on initial assessmt command hallucination Date Initiated: 12/04/17 Time Initiated: 15:33 Assessment reference: NA Status: Active visual hallucination Date Initiated: 12/04/17 Time Initiated: 15:34 Assessment reference: NA Status: Active medication nonadherence Date Initiated: 12/04/17 Time Initiated: 15:35 Assessment reference: NA Status: Active Treatment assets and liabiliti Patient Assests: adapts well, cooperative, self-reliant, ADL independent, physically healthy, negotiates basic needs, cognitively intact Patient Liabilities: substance abuse, auditory impairment, visual impairment - Milieu Protocol Maintain good personal hygiene: every shift Encourage regular showers, every shift Remind patient to perform daily oral care, every shift Assist patient to perform ADL's Conduct patient checks and document Observation sheet: Q15 minutes Maintain personal safety: every shift Educate patient to report safety concerns to staff, every shift Monitor environment for contraband/sharps Medication safety: Monitor for expected outcome, potential side effects: every shift, Assess barriers to learning: every shift, Assess readiness for medication education: every shift Milieu Narrative: milieu, structure, supportive therapy Benztropine 0.5 mg twice a day for EPS Folic Acid 1 mg PO DAILYwill be resumed Mirtazapine [Remeron] 50 mg at the nighttime for depression and insomnia Multimineral/Multivitamin [Therapeutic-M Tab] by mouth daily will be resumed Thiamine [Vitamin B1 Tab] 100 mg PO DAILY by mouth daily will be resumed risperiDONE [RisperDAL] mg 3 times a day for psychosis As needed medications SW consultation for discharge plan and social issues Family involvement Follow up on labs Will monitor closely Pt was educated about risk/benefits and alternatives of medications, coping strategies (safety plan, suicide prevention), relapse prevention, importance of follow up with psychiatrist and therapist, stay away from drugs/alcohol/smoking Discharge/Continuing Care - Education Needs Education Needs: Patient Medication, Patient Diagnosis/Disease Process, Patient Coping Skills, Patient Personal Hygiene/Grooming - Discharge Discharge Criteria: Tolerates medication w/o severe side effects, Free of Suicidal thoughts, Normal sleep pattern - Treatment Team Participation Patient/Family/SO Statement: milieu, structure, supportive therapy Benztropine 0.5 mg twice a day for EPS Folic Acid 1 mg PO DAILYwill be resumed Mirtazapine [Remeron] 50 mg at the nighttime for depression and insomnia Multimineral/Multivitamin [Therapeutic-M Tab] by mouth daily will be resumed Thiamine [Vitamin B1 Tab] 100 mg PO DAILY by mouth daily will be resumed risperiDONE [RisperDAL] mg 3 times a day for psychosis As needed medications SW consultation for discharge plan and social issues Family involvement Follow up on labs Will monitor closely Pt was educated about risk/benefits and alternatives of medications, coping strategies (safety plan, suicide prevention), relapse prevention, importance of follow up with psychiatrist and therapist, stay away from drugs/alcohol/smoking
--- NOTE | 2017-12-05 12:19 | PCM.PYCHPN ---
Psychiatric Progress Note - Psychiatric Progress Note Patient seen today, length of contact: 25 min Problems Identified/Issues Discussed: Patient is a 41 y/o Male with reported history of bipolar disorder and psychosis vs schizoaffective disorder, alcohol and PCP use disorder, multiple psychiatric admissions--most recently was a week ago at [facility] [place] and 10 days prior to that, patient was discharged AMA from [facility], at least 4 suicide attempts--most recent was at the beginning of this month in which pt tried to kill himself by banging his head against cabinet, pt also has h/o trying to hang self, slashed wrists, +hx of incarceration x 7 years for weapon possession who presented to ER complaining of depression and CAH ordering telling him to kill himself. I reviewed recent notes which indicate that patient has been depressed and guarded on the unit. Patient has been compliant with medications, demonstrating good appetite and attending group. There have been no behavioral issues thus far. I met with patient at bedside and again during treatment team meeting. He continues to present with PMR, internal preoccupation and scattered thought process. Eye contact is intermittent and affect is constricted. He is calm but seems unmotivated to engage with this provider or treatment team. Patient indicates he feels okay and denies any new concerns. I reviewed his medication list and patient denies any side effects thus far. Sleeping well. He is tolerating his medications and denies any new discomfort or pain. Though patient endorsed CAH, VH and persecutory delusions at admission, he denies these symptoms at this time. Diagnostic Results: rule out substance-induced psychosis Rule out schizoaffective Stimulant use disorder Cannabis abuse Medication Change: No Medical Record Reviewed: Yes Mental Status Examination - Cognitive Function Orientation: Person, Place Attention: WNL Concentration: Poor Association: Loose - Mood Mood: Depressed - Affect Affect: Flat - Formal Thought Process Formal Thought Process: Hallucinations (denied), Delusions (not elicited at this time), Paranoia, Loosening of associations, Circumstantial - Suicidal Ideation Suicidal Ideation: No - Homicidal Ideation Homicidal Ideation: No Goal/Treatment Plan - Goal/Treatment Plan Progress Toward Problem(s) and Goals/Treatment Plan: * c/w current tx and plan * No new labs thus far today * Vitals reviewed and noted below: Selected Entries 12/04/17 12/04/1718 09:53 16:00 06:38 Temperature 98.4 F 98.0 F Pulse Rate 82 62 49 L Respiratory 20 20 Rate Blood Pressure 118/65 147/81 83/51 L 12/05/17 06:44 Temperature 98.0 F Pulse Rate 49 L Respiratory 18 Rate Blood Pressure 83/51 L
[2017-12-06 06:39] VITALS: RESP 20
--- NOTE | 2017-12-06 08:56 | PCM.PYCHPN ---
Psychiatric Progress Note - Psychiatric Progress Note Patient seen today, length of contact: 25 min Problems Identified/Issues Discussed: Patient is a 41 y/o Male with reported history of bipolar disorder and psychosis vs schizoaffective disorder, alcohol and PCP use disorder, multiple psychiatric admissions--most recently was a week ago at [facility] and 10 days prior to that, patient was discharged AMA from [facility], at least 4 suicide attempts--most recent was at the beginning of this month in which pt tried to kill himself by banging his head against cabinet, pt also has h/o trying to hang self, slashed wrists, +hx of incarceration x 7 years for weapon possession who presented to ER complaining of depression and CAH ordering telling him to kill himself. I reviewed recent notes which indicate that patient has been visible but guarded on the unit. Patient has been compliant with medications, demonstrating good appetite and attending group. There have been no behavioral issues thus far. I met with patient at bedside again today. He is presenting brighter and more related. Groomed and oriented x3 with good EC. Patient is calm and appears more motivated in communicating and engaging. He tells me that he is feeling a lot better after speaking with family. Apparently they have a surprise green party planned for his birthday on Friday. He feels current medication regimen has been very beneficial and he denies any issues or side effects. Still sleeping well and demonstrates good appetite. Though patient endorsed CAH, VH and persecutory delusions at admission (and endorsed AH with nursing staff yesterday ), he denies these symptoms to this provider during all our interviews. He doesnt appear to be responding to internal stimuli and thought process is clearing up and becoming more focused. Patient submitted 48 hour letter yesterday at 6:15 pm. Insight and judgement are improving such that patient may be discharged AMA on his 48 hour letter tomorrow. Diagnostic Results: rule out substance-induced psychosis Rule out schizoaffective Stimulant use disorder Cannabis abuse Medication Change: No Medical Record Reviewed: Yes Mental Status Examination - Cognitive Function Orientation: Person, Place Attention: WNL Concentration: Poor Association: Loose - Mood Mood: Depressed - Affect Affect: Flat - Formal Thought Process Formal Thought Process: Hallucinations (denied), Delusions (not elicited at this time), Paranoia, Loosening of associations, Circumstantial - Suicidal Ideation Suicidal Ideation: No - Homicidal Ideation Homicidal Ideation: No Goal/Treatment Plan - Goal/Treatment Plan Progress Toward Problem(s) and Goals/Treatment Plan: * c/w current tx and plan * Patient submitted 48 hour letter yesterday at 6:15 pm. Insight and judgement are improving such that patient may be discharged AMA on his 48 hour letter tomorrow. * No new labs thus far today * Vitals reviewed and noted below: Selected Entries 12/06/17 06:38 Temperature 98.0 F Pulse Rate 63 Respiratory 20 Rate Blood Pressure 74/39 L
[2017-12-07 06:57] VITALS: BP 115/87; PULSE 67; TEMP 98.2
--- NOTE | 2017-12-07 09:08 | PCM.PYCHDC ---
Mental Status Examination - Mental Status Examination Orientation: Person, Place, Situation Memory: Intact Mood: Neutral Affect: Broad Speech: Appropriate Attention: WNL Concentration: WNL Association: WNL Fund of Knowledge: WNL Formal Thought Process: No Impairment Description of patient's judgement and insight: Good and much improved insight and judgement Psychotic Thoughts and Behaviors: Patient denied any perceptual disturbance at discharge, specifically denied AVH or paranoid thoughts. Delusions were not elicited. Suicidal Ideation: No Current Homicidal Ideation?: No Discharge Summary - Discharge Note Reason for Hospitalization: Patient is a 41 y/o Male with reported history of bipolar disorder and psychosis vs schizoaffective disorder, alcohol and PCP use disorder, multiple psychiatric admissions--most recently was a week ago at [facility] [place] and 10 days prior to that, patient was discharged AMA from [facility], at least 4 suicide attempts--most recent was at the beginning of this month in which pt tried to kill himself by banging his head against cabinet, pt also has h/o trying to hang self, slashed wrists, +hx of incarceration x 7 years for weapon possession who presented to ER complaining of depression and CAH ordering telling him to kill himself. Psychiatric History (includes Medical, Family, Personal Hx): see HPI Laboratory Data: Laboratory Tests 12/04/17 12/04/17 12/04/17 04:10 04:10 04:10 WBC 9.2 RBC 4.50 Hgb 14.0 Hct 40.9 L MCV 90.9 MCH 31.1 MCHC 34.2 RDW 13.1 Plt Count 313 MPV 9.9 Gran % 63.2 Lymph % (Auto) 27.7 [place] % (Auto) 7.1 H Eos % (Auto) 1.5 Baso % (Auto) 0.5 Gran # 5.79 Lymph # (Auto) 2.5 [place] # (Auto) 0.7 H Eos # (Auto) 0.1 Baso # (Auto) 0.05 Sodium 145 Potassium 3.7 Chloride 105 Carbon Dioxide 26 Anion Gap 17 BUN 12 Creatinine 1.4 Est GFR ( Amer) > 60 Est GFR (Non-Af Amer) 56 Random Glucose 83 Calcium 9.5 Magnesium 1.9 Total Bilirubin 0.5 AST 56 ALT 29 Alkaline Phosphatase 66 Total Protein 7.7 Albumin 4.3 Globulin 3.4 Albumin/Globulin Ratio 1.3 Urine Color Yellow Urine Appearance Sl cloudy Urine pH 6.0 Ur Specific [place] >= 1.030 Urine Protein 30 H Urine Glucose (UA) Negative Urine Ketones Trace H Urine Blood Negative Urine Nitrate Negative Urine Bilirubin Small H Urine Urobilinogen 1.0 H Ur Leukocyte Esterase Negative Urine RBC 0 - 2 Urine WBC 0 - 2 Ur Epithelial Cells 0 - 2 Salicylates Urine Opiates Screen Urine Methadone Screen Acetaminophen Ur Barbiturates Screen Ur Phencyclidine Scrn Ur Amphetamines Screen U Benzodiazepines Scrn U Oth Cocaine Metabols U Cannabinoids Screen Alcohol, Quantitative 12/04/17 12/04/17 12/04/17 04:10 04:10 04:20 WBC RBC Hgb Hct MCV MCH MCHC RDW Plt Count MPV Gran % Lymph % (Auto) [place] % (Auto) Eos % (Auto) Baso % (Auto) Gran # Lymph # (Auto) [place] # (Auto) Eos # (Auto) Baso # (Auto) Sodium Potassium Chloride Carbon Dioxide Anion Gap BUN Creatinine Est GFR ( Amer) Est GFR (Non-Af Amer) Random Glucose Calcium Magnesium Total Bilirubin AST ALT Alkaline Phosphatase Total Protein Albumin Globulin Albumin/Globulin Ratio Urine Color Urine Appearance Urine pH Ur Specific [place] Urine Protein Urine Glucose (UA) Urine Ketones Urine Blood Urine Nitrate Urine Bilirubin Urine Urobilinogen Ur Leukocyte Esterase Urine RBC Urine WBC Ur Epithelial Cells Salicylates < 1 L Urine Opiates Screen Negative Urine Methadone Screen Negative Acetaminophen < 10.0 L Ur Barbiturates Screen Negative Ur Phencyclidine Scrn Positive H Ur Amphetamines Screen Negative U Benzodiazepines Scrn Negative U Oth Cocaine Metabols Negative U Cannabinoids Screen Positive H Alcohol, Quantitative < 10 Consultations:: List each consultation separately and include: 1. Reason for request. 2. Findings. 3. Follow-up Consultations: NONE REQUESTED Summary of Hospital Course include:: 1. Description of specific treatment plan utilized for patients during their course of treatmen. 2. Summarize the time- course for resolution of acute symptoms and/or regressed behaviors. 3. Describe issues identified and worked on during hospitalization. 4. Describe medication utilized. 5. Describe medical problems identified and treated. 6. Reassessment of suicide risk Summary of Hospital Course: Patient is a 41 y/o Male with reported history of bipolar disorder and psychosis vs schizoaffective disorder, alcohol and PCP use disorder, multiple psychiatric admissions--most recently was a week ago at [facility] [place] and 10 days prior to that, patient was discharged AMA from [facility], at least 4 suicide attempts--most recent was at the beginning of this month in which pt tried to kill himself by banging his head against cabinet, pt also has h/o trying to hang self, slashed wrists, +hx of incarceration x 7 years for weapon possession who presented to ER complaining of depression and CAH ordering telling him to kill himself. Patient was initially guarded and complained of auditory hallucinations when he arrived on the unit. Denied SI or HI. He cleared up quickly with medications. Patient also told me that he was feeling a lot better after speaking with family. Apparently they have a surprise libertarian planned for his birthday on Friday. Became more visible, attended group and demonstrated good appetite. Slept well. There were no behavioral issues throughout course. I met with patient at bedside again today for discharge interview. He is still presenting brighter and more related. Groomed and oriented x3 with good EC. Patient is calm and appears more motivated in communicating and engaging. He feels current medication regimen has been very beneficial and he denies any issues or side effects. Still sleeping well and demonstrates good appetite. Though patient endorsed CAH, VH and persecutory delusions at admission (and endorsed AH with nursing staff yesterday), he denies these symptoms to this provider during all our interviews. He doesnt appear to be responding to internal stimuli and thought process is clear, more focused. Behavior is predictable. Feels very comfortable with discharge planned today. - Final Diagnosis (DSM 5) Condition upon Discharge: IMPROVED DSM 5: rule out substance-induced psychosis Rule out schizoaffective Stimulant use disorder Cannabis abuse Disposition: AGAINST MEDICAL ADVICE Follow-up Treatment Plan: Patient submitted 48 hour letter on December 05, 2017 at 6:15 pm. Insight and judgement have improved such that patient may be discharged AMA on his 48 hour letter Patient reported that his previous aftercare recommendation was [facility] and that he plans to f/u there for substance use treatment and medication management after this discharge. Medications were phoned into [facility] pharmacy (Critical access hospital) at 9 am ). A 2 week supply with one refill of the following medications were authorized by this provider: Cogentin 0.5 mg po bid Remeron 15 mg po HS Risperdal 1 mg po TID - Smoking Cessation Smoking Cessation Medication prescribed: No Reason for not providing: Patient deferred - Antipsychotic Medications Pt discharged on 2 or more routine antipsychotic medications: No
== END 2017-12-07 10:13 | disposition left against medical advice (07) | DRG 430 ==
LOC: ED 01:37 → ERH 09:19 → PSYC 09:59
PROVIDERS: ADMIT Psychiatry & Neurology Psychiatry; ATTEND Psychiatry & Neurology Psychiatry
PROC: GZ3ZZZZ Medication Management (ICD-10-PCS; principal; 2017-12-04)
DX: F31.9 Bipolar disorder, unspecified (principal); F15.10 Other stimulant abuse, uncomplicated; F25.9 Schizoaffective disorder, unspecified; F12.10 Cannabis abuse, uncomplicated; G47.00 Insomnia, unspecified; Z91.14 Patient's other noncompliance with medication regimen; Z87.891 Personal history of nicotine dependence; Z91.5 Personal history of self-harm

== ENCOUNTER 2017-12-12 00:23 | Emergency (ER) | payer MEDICAID ==
[2017-12-12 00:23] VITALS: BMI 23.7
[2017-12-12 02:20] LABS: BASO # 0.04 K/mm3 (0.0-2.0); BASO % 0.5 % (0.0-3.0); EOS # 0.2 (0.0-0.7); EOS % 2.3 % (1.5-5.0); GRAN # 3.61 (1.4-6.5); GRAN % 49.1 % (50.0-68.0); HEMOGLOBIN 12.6 g/dL (14.0-18.0); LYMPH # 2.6 (1.2-3.4); LYMPH % 35.3 % (22.0-35.0); MEAN CELL VOLUME 89.6 fl (80.0-105.0); MEAN CORPUSCULAR HEMOGLOBIN 30.5 pg (25.0-35.0); MEAN CORPUSCULAR HGB CONC 34.1 g/dl (31.0-37.0); MEAN PLATELET VOLUME 9.4 fl (7.0-11.0); MONO # 0.9 (0.1-0.6); MONO % 12.8 % (1.0-6.0); RBC 4.13 10^6/uL (3.5-6.1); RED CELL DISTRIBUTION WIDTH 12.9 % (11.5-14.5); WHITE BLOOD COUNT 7.4 10^3/ul (4.5-11.0)
[2017-12-12 02:32] LABS: BLOOD UREA NITROGEN 13 mg/dL (7-21); CALCIUM 8.7 mg/dL (8.4-10.5); GFR AFRICAN-AMERICAN > 60; GFR NON-AFRICAN AMERICAN > 60
--- NOTE | 2017-12-12 02:40 | ED PDOC ---
Arrival/HPI - General Historian: Patient - History of Present Illness Time/Duration: Prior to Arrival <Lauri Gonzalez - Last Filed: 12/12/17 05:59> - History of Present Illness Symptom Onset: Gradual Symptom Course: Unchanged Context: Home <Jose Maria Cartagena - Last Filed: 12/12/17 07:10> - General Time Seen by Provider: 12/12/17 00:26 - History of Present Illness Narrative History of Present Illness (Text): 12/12/17 02:34 42 M with history of depression with suicidal ideation presents with complaints of suicidal ideation without a plan. Patient states he has had suicidal ideations in the past in which he attempted to commit suicide by hanging him self and cutting his wrist. Patient states he has not attempted to commit suicide this time but the desire is there. Currently lives with his friend who knows of his suicidal ideation and that he's currently in the emergency department. Was brought to the emergency department by another fried. Patient also endorses lack of appetite for the past few days. Denies fevers, chills, nausea, vomiting, diarrhea, abdominal pain, cough, headache, weakness, dizziness , shortness of breath, chest pain, palpitations. (Lauri Gonzalez) Past Medical History - Provider Review Nursing Documentation Reviewed: Yes - Infectious Disease Hx of Infectious Diseases: None - Cardiac Hx Cardiac Disorders: No Hx Hypertension: No - Pulmonary Hx Tuberculosis: No - Neurological HX Cerebrovascular Accident: No Hx Seizures: No - HEENT Hx HEENT Disorder: No - Renal Hx Renal Disorder: No - Endocrine/Metabolic Hx Endocrine Disorders: No - Hematological/Oncological Hx Cancer: No - Integumentary Hx Dermatological Disorder: No - Musculoskeletal/Rheumatological Hx Musculoskeletal Disorders: No - Gastrointestinal Hx Gastrointestinal Disorders: No - Genitourinary/Gynecological Hx Sexually Transmitted Diseases: No - Psychiatric Hx Depression: Yes Hx Schizophrenia: Yes Hx Substance Use: No - Anesthesia Hx Anesthesia: No Hx Anesthesia Reactions: No Hx Malignant Hyperthermia: No - Suicidal Assessment Feels Threatened In Home Enviroment: No <Lauri Gonzalez - Last Filed: 12/12/17 05:59> Family/Social History - Physician Review Nursing Documentation Reviewed: Yes Family/Social History: Other Smoking Status: Heavy Smoker > 10 Cigarettes Daily Hx Alcohol Use: Yes Hx Substance Use: No Substance used: PCP <Lauri Gonzalez - Last Filed: 12/12/17 05:59> Allergies/Home Meds <Lauri Gonzalez - Last Filed: 12/12/17 05:59> <Jose Maria Cartagena - Last Filed: 12/12/17 07:10> Allergies/Adverse Reactions: Allergies No Known Allergies Allergy (Verified 12/04/17 18:52) Review of Systems - Review of Systems Constitutional: Normal Eyes: Normal ENT: Normal Respiratory: Normal Cardiovascular: Normal Gastrointestinal: Normal Genitourinary Male: Normal Musculoskeletal: Normal Skin: Normal Neurological: Normal Endocrine: Normal Hemo/Lymphatic: Normal Psychiatric: Depression, Suicidal Ideation <Lauri Gonzalez - Last Filed: 12/12/17 05:59> - Physician Review All systems were reviewed & negative as marked: Yes <Jose Maria Cartagena - Last Filed: 12/12/17 07:10> Physical Exam Vital Signs Reviewed: Yes Temperature: Afebrile Blood Pressure: Normal Pulse: Regular Respiratory Rate: Normal Appearance: Positive for: Well-Appearing, Non-Toxic, Comfortable Pain Distress: None Mental Status: Positive for: Alert and Oriented X 3 - Systems Exam Head: Present: Atraumatic, Normocephalic Pupils: Present: PERRL Extroacular Muscles: Present: EOMI Conjunctiva: Present: Normal Mouth: Present: Moist Mucous Membranes Neck: Present: Normal Range of Motion Respiratory/Chest: Present: Clear to Auscultation. No: Wheezes, Rhonchi Cardiovascular: Present: Regular Rate and Rhythm, Normal S1, S2 Abdomen: Present: Normal Bowel Sounds. No: Tenderness, Distention Upper Extremity: Present: Normal Inspection Lower Extremity: Present: Normal Inspection Neurological: Present: GCS=15, CN II-XII Intact, Speech Normal Skin: Present: Warm, Normal Color Psychiatric: Present: Alert, Oriented x 3, Suicidal Ideation <Lauri Gonzalez - Last Filed: 12/12/17 05:59> Vital Signs Temp Pulse Resp Pulse Ox 12/12/17 03:15 98.2 F 82 18 99 12/12/17 00:46 98 F 86 17 100 Medical Decision Making <Lauri Gonzalez - Last Filed: 12/12/17 05:59> - Lab Interpretations I have reviewed the lab results: Yes - EKG Interpretation Interpreted by ED Physician: Yes Type: 12 lead EKG <Jose Maria Cartagena - Last Filed: 12/12/17 07:10> ED Course and Treatment: 12/12/17 02:52 -CBC, CMP, TSH EKG, CXR -Medical Clearance (Lauri Gonzalez) Patient Seen With Resident: In agreement with resident note which contains more details about the patient. Patient was seen and evaluated with resident. Came up with plan and treatment together. 42 year old male presents for complaints of suicidal ideation without a plan. Plan: -- EKG -- Labs -- Chest X-ray -- AES Crisis Evaluation -- Urinalysis Patient is medically cleared for PES evaluation. 12/12/17 06:50 Case signed out to Dr. Lyons pending PES re-evaluation at 09:00 (Jose Maria Cartagena) - Lab Interpretations Lab Results: 12/12/17 02:08 12/12/17 02:08 Lab Results 12/12/17 03:05: Urine Color Yellow, Urine Appearance Clear, Urine pH 6.0, Ur Specific [place] >= 1.030, Urine Protein Negative, Urine Glucose (UA) Negative, Urine Ketones Trace H, Urine Blood Negative, Urine Nitrate Negative, Urine Bilirubin Negative, Urine Urobilinogen 0.2, Ur Leukocyte Esterase Negative 12/12/17 03:05: Urine Opiates Screen Negative, Urine Methadone Screen Negative, Ur Barbiturates Screen Negative, Ur Phencyclidine Scrn Positive H, Ur Amphetamines Screen Negative, U Benzodiazepines Scrn Negative, U Oth Cocaine Metabols Negative, U Cannabinoids Screen Positive H 12/12/17 02:08: TSH 3rd Generation 1.65 12/12/17 02:08: Sodium 142, Potassium 3.8, Chloride 105, Carbon Dioxide 25, Anion Gap 16, BUN 13, Creatinine 1.2, Est GFR ( Amer) > 60, Est GFR (Non- Af Amer) > 60, Random Glucose 85, Calcium 8.7 12/12/17 02:08: WBC 7.4, RBC 4.13, Hgb 12.6 L, Hct 37.0 L, MCV 89.6, MCH 30.5, MCHC 34.1, RDW 12.9, Plt Count 281, MPV 9.4, Gran % 49.1 L, Lymph % (Auto) 35.3 H, [place] % (Auto) 12.8 H, Eos % (Auto) 2.3, Baso % (Auto) 0.5, Gran # 3.61, Lymph # (Auto) 2.6, [place] # (Auto) 0.9 H, Eos # (Auto) 0.2, Baso # (Auto) 0.04 - RAD Interpretation Radiology Orders: 12/12/17 01:46 CHEST PORTABLE [RAD] Stat <Lauri Gonzalez - Last Filed: 12/12/17 05:59> - Scribe Statement The provider has reviewed the documentation as recorded by the Scribe <Jose Maria Cartagena - Last Filed: 12/12/17 07:10> - Scribe Statement Kumar Day Provider Scribe Attestation: All medical record entries made by the Scribe were at my direction and personally dictated by me. I have reviewed the chart and agree that the record accurately reflects my personal performance of the history, physical exam, medical decision making, and the department course for this patient. I have also personally directed, reviewed, and agree with the discharge instructions and disposition. (Jose Maria Cartagena) Disposition/Present on Arrival - Present on Arrival History of DVT/PE: No History of Uncontrolled Diabetes: No Urinary Catheter: No History of Decub. Ulcer: No History Surgical Site Infection Following: None <Lauri Gonzalez - Last Filed: 12/12/17 05:59> <Jose Maria Cartagena - Last Filed: 12/12/17 07:10> - Disposition Referrals: Peter Bhatti MD [Primary Care Provider] - Follow up with primary
[2017-12-12 03:16] VITALS: RESP 18
[2017-12-12 03:25] LABS: URINE BILIRUBIN NEGATIVE (NEGATIVE); URINE BLOOD NEGATIVE (NEGATIVE); URINE GLUCOSE (UA) NEGATIVE (NEGATIVE); URINE LEUKOCYTE ESTERASE NEGATIVE Leu/uL (NEGATIVE); URINE PROTEIN NEGATIVE mg/dL (<30 mg/dL); URINE UROBILINOGEN 0.2 E.U./dL (<1 E.U./dL)
[2017-12-12 03:28] LABS: URINE APPEARANCE CLEAR (CLEAR); URINE COLOR YELLOW (YELLOW)
[2017-12-12 04:15] LABS: BARBITURATES, UR NEGATIVE (NEGATIVE); BENZODIAZEPINES, UR NEGATIVE (NEGATIVE); OPIATES, UR NEGATIVE (NEGATIVE); PHENCYCLIDINE, UR POSITIVE (NEGATIVE)
--- NOTE | 2017-12-12 07:14 | ED PDOC ---
Physical Exam - Physical Exam Narrative Physical Exam (Text): 12/12/17 09:38 General: alert/awake, GCS = 15, oriented x 3, resting in bed, comfortable, cooperative, interactive; NAD Head: NC/AT EYE: PERRLA, EOMI, sclera anicteric, no nystagmus, no photophobia; visual field intact b/l Facial: WNL Oral: uvula/tongue are midline, no exudate/lesions, no drooling/stridor, no dysphonia; intact dentitions NECK: intact ROM, no midline tenderness, no nuchal rigidity, no meningeal signs ; no step off Chest: CTA b/l, no w/r/r; no tachypenia, no accessory muscle use noted Cardiac: +S1, +S2, no m/r/r, no tachycardia Abdominal: +BS, soft/nd/nt, well nourished patient; no masses/rebound/guarding/ rigidity; no moya's sign, no mcburney's point tenderness Extremities: intact ROM, strength 5/5 grossly intact in all limbs, neurovasc intact b/l; + ambulatory; reflex +2/2 BACK: no step off, no midline tenderness, NO crepitus, no gross deformities noted; Intact ROM SKIN: cap refill < 1 sec, no ulcerations, no petechiae, no rashes NEURO: CNII-XII WNL, no facial asymmetries, no slurr speech, oriented x 3 NIH stroke scale ~ 0 Psych: normal insight, normal affect; follows command with ease Vital Signs Reviewed: Yes Vital Signs Temp Pulse Resp BP Pulse Ox 12/12/17 07:27 97.6 F 52 L 18 103/70 96 12/12/17 03:15 98.2 F 82 18 99 12/12/17 00:46 98 F 86 17 100 Temperature: Afebrile Blood Pressure: Normal Pulse: Regular Respiratory Rate: Normal Appearance: Positive for: Well-Appearing, Non-Toxic, Uncomfortable Pain Distress: None Mental Status: Positive for: Alert and Oriented X 3 Medical Decision Making ED Course and Treatment: 12/12/17 07:13 Patient endorsed to me by Dr. Cartagena at 07:00, pending PES re-evaluation; pt is medically cleared by Dr Cartagena; pt can be dispositioned accordingly 12/12/17 09:28 Dr. Aminah Joseph at bedside and re-evaluated patient. Patient psych cleared from crisis. Recommends outpatient follow up for patient vital signs stable 0939 i re-interviewed patient, pt is calm and cooperative; sitting on the exam bed pt states he has NO SI/HI, no intentions, pt states he was drinking last night pt states no hallucinations - visual/tactile/auditory pt is made aware of his medical results pt is encouraged no alcohol/smoking/drug use pt will follow up as directed pt will be discharged home Re-evaluation Time: 09:39 Reassessment Condition: Improved - Lab Interpretations Lab Results: 12/12/17 02:08 12/12/17 02:08 Lab Results 12/12/17 03:05: Urine Color Yellow, Urine Appearance Clear, Urine pH 6.0, Ur Specific [place] >= 1.030, Urine Protein Negative, Urine Glucose (UA) Negative, Urine Ketones Trace H, Urine Blood Negative, Urine Nitrate Negative, Urine Bilirubin Negative, Urine Urobilinogen 0.2, Ur Leukocyte Esterase Negative 12/12/17 03:05: Urine Opiates Screen Negative, Urine Methadone Screen Negative, Ur Barbiturates Screen Negative, Ur Phencyclidine Scrn Positive H, Ur Amphetamines Screen Negative, U Benzodiazepines Scrn Negative, U Oth Cocaine Metabols Negative, U Cannabinoids Screen Positive H 12/12/17 02:08: TSH 3rd Generation 1.65 12/12/17 02:08: Sodium 142, Potassium 3.8, Chloride 105, Carbon Dioxide 25, Anion Gap 16, BUN 13, Creatinine 1.2, Est GFR ( Amer) > 60, Est GFR (Non- Af Amer) > 60, Random Glucose 85, Calcium 8.7 12/12/17 02:08: WBC 7.4, RBC 4.13, Hgb 12.6 L, Hct 37.0 L, MCV 89.6, MCH 30.5, MCHC 34.1, RDW 12.9, Plt Count 281, MPV 9.4, Gran % 49.1 L, Lymph % (Auto) 35.3 H, [place] % (Auto) 12.8 H, Eos % (Auto) 2.3, Baso % (Auto) 0.5, Gran # 3.61, Lymph # (Auto) 2.6, [place] # (Auto) 0.9 H, Eos # (Auto) 0.2, Baso # (Auto) 0.04 I have reviewed the lab results: Yes Interpretation: Abnormal lab values (abnl Tox) - RAD Interpretation Narrative RAD Interpretations (Text): 12/12/17 09:42 HISTORY: medical clearance COMPARISON: 12/04/2017. FINDINGS: LUNGS: No active pulmonary disease. PLEURA: No significant pleural effusion identified, no pneumothorax apparent. CARDIOVASCULAR: No radiographic findings to suggest acute or significant cardiovascular disease. OSSEOUS STRUCTURES: No significant abnormalities. VISUALIZED UPPER ABDOMEN: Normal. OTHER FINDINGS: None. IMPRESSION: No active disease. No significant interval change compared to the prior examination(s). Radiology Orders: 12/12/17 01:46 CHEST PORTABLE [RAD] Stat Monorail Crane Operator: Radiologist - Scribe Statement The provider has reviewed the documentation as recorded by the Scribbrian Rivera Provider Scribe Attestation: All medical record entries made by the Scribe were at my direction and personally dictated by me. I have reviewed the chart and agree that the record accurately reflects my personal performance of the history, physical exam, medical decision making, and the department course for this patient. I have also personally directed, reviewed, and agree with the discharge instructions and disposition. Disposition/Present on Arrival - Present on Arrival Any Indicators Present on Arrival: No History of DVT/PE: No History of Uncontrolled Diabetes: No Urinary Catheter: No History of Decub. Ulcer: No History Surgical Site Infection Following: None - Disposition Have Diagnosis and Disposition been Completed?: Yes Diagnosis: Drug abuse and dependence, General medical exam Disposition: HOME/ ROUTINE Disposition Time: 09:40 Patient Plan: Discharge Patient Problems: Current Active Problems Problem Status Onset Drug abuse and dependence Acute General medical exam Acute Condition: STABLE Discharge Instructions (ExitCare): Drug Abuse and Drug Addiction (DC), Yearly Physical for Adults Print Language: GREEK Additional Instructions: Make sure to see your doctor in 1-2 days DRINK PLENTY OF FLUIDS take your medications as prescribed DONT DO DRUGS DONT SMOKE DONT DRINK ALCOHOL RETURN TO ED IF worse pain, cant breath, persistent vomiting, high fever >101- 102 for hours, altered behavior, slurr speech, facial changes, focal weakness ( arm/leg or both), unable to urinate, heavy/persistent bleeding, passing out, chest pain, or other medical emergencies Referrals: [facility] [Outside] - Follow up with primary [facility] [Outside] - Follow up with primary [facility] [Outside] - [facility] up with primary [facility] [place] - Follow up with primary Peter Bhatti MD [Primary Care Provider] - Follow up with primary Forms: [facility] (Slovenian)
[2017-12-12 07:27] VITALS: TEMP 97.6
--- NOTE | 2017-12-12 08:35 | RAD ---
HISTORY: medical clearance COMPARISON: 12/04/2017. FINDINGS: LUNGS: No active pulmonary disease. PLEURA: No significant pleural effusion identified, no pneumothorax apparent. CARDIOVASCULAR: No radiographic findings to suggest acute or significant cardiovascular disease. OSSEOUS STRUCTURES: No significant abnormalities. VISUALIZED UPPER ABDOMEN: Normal. OTHER FINDINGS: None. IMPRESSION: No active disease. No significant interval change compared to the prior examination(s).
[2017-12-12 09:54] VITALS: BP 109/80; PULSE 59; O2SAT 99
--- NOTE | 2017-12-12 19:01 | CARD ---
APPROVED REPORT EKG Measurement Heart [id number] <Conclusion> Normal sinus rhythm Possible Left atrial enlargement Borderline ECG
--- NOTE | 2017-12-12 20:56 | CON ---
DATE: 12/12/2017 HISTORY OF PRESENT ILLNESS: Shortly, the patient is a 42-year-old male with a reported history of schizoaffective disorder, which is questionable; PCP and cannabis use disorder; multiple emergency room visits as well as at least two [id number] admissions to this hospital as well as [facility]. On 11/17/2017, the patient was discharged from the [facility] where he spent 5 days. The patient came back within 2 days to [facility] on 11/19/2017. He was staying in the hospital for 6 days. After that, the patient came back to the [facility] where he was cleared by psychiatric team and was discharged on 12/02/2017. On 12/04/2017, the patient came back to [facility] and was admitted for 4 days, where he submitted a 48-hour notice and was discharged against medical advice. After that, on the next day, the patient came back to the [facility] complaining that he is depressed and suicidal. He was cleared by psychiatrist at the [facility]. The patient came back to [facility] on 12/12/2017, claiming that he is depressed and with suicidal ideation with no plan. This scientific technical writer is very familiar with the patient from two [id number] admissions. The patient was seen in the emergency room as per medical team's request. The patient presented to be sleepy, but easily arousable. The patient reported that his stepmother and that is why he was depressed. The patient claimed that he was not using any drugs, but at the same time, urine drug screen was positive for PCP and cannabis. The patient was not truthful about that information. The patient reported that he has depressive symptoms, but denied any intent or plan to kill himself. The patient reported that he has a job and he lives with his friend. The patient reported that he missed his appointment. This scientific technical writer checked the previous discharge summary and the patient was supposed to be followed up with the [facility]. The patient was educated about [facility] program. Phone number as well as the address was provided. The patient contracts for safety. The patient is not acutely psychotic or disorganized. Behaved well in the emergency room. VITAL SIGNS: This scientific technical writer reviewed vital signs. Vital signs seems to be stable. Temperature 97.6, pulse is 52, blood pressure 103/70, respirations 18, oxygen saturation is 96. MEDICATIONS: There were no medications given to the patient while he was in the emergency room. LABORATORY DATA: Hemoglobin and hematocrit are 12.6 and 37. Chemistry also reviewed. Urinalysis reviewed, ketones trace. Toxicology was positive for PCP as well as cannabis. MENTAL STATUS EXAMINATION: The patient appears to be sleepy, but easily arousable. Good personal hygiene, good eye contact. The patient seems to be an unreliable historian because secondary gain cannot be excluded. The patient described his mood as depressed, which is understandable as the patient's stepmother . Thought process seems to be coherent and goal directed. Thought content, the patient denied command-type hallucinations, questionable hallucinations, but the patient does not appear to be psychotic, does not appear to be paranoid, does not appear to be internally preoccupied. Insight and judgment seem to be fair. Impulses are well controlled. IMPRESSION: As per history, substance abuse; as per history, questionable schizoaffective disorder; malingering cannot be excluded at this time. PLAN: The patient has all prescriptions from the previous admission. The patient was educated to stay away from the drugs and follow up with the [facility]. Phone number as well as address was provided to the patient. The patient contracted for safety at this point. The patient is clear from the psychiatric team, deemed to be not in any imminent danger to self or others. Should you have any questions, give me a call back. Discussed with the emergency room nursing staff as well as attending. Thank you very much for letting me participate in the care of your patient. Aminah Joseph MD
== END 2017-12-12 09:55 | disposition home or self-care (01) ==
LOC: ED 00:23
DX: F19.20 Other psychoactive substance dependence, uncomplicated (principal); F20.9 Schizophrenia, unspecified; F32.9 Major depressive disorder, single episode, unspecified